=== PATIENT | male | born 1960 | race Caucasian/White ===

== ENCOUNTER → 2018-08-07 10:26 | Outpatient (CLI) | payer OTHER, SELFPAY ==
--- NOTE | 2018-08-07 10:32 | XR_ITS ---
XR chest 2V HISTORY: ITS.REASON: COUGH,SOB,LT SHOULDER PAIN ORDERING PHYSICIAN: Oc Antonio PATIENT AGE: 58 years COMPARISON: None FINDINGS: The cardiomediastinal silhouette and pulmonary vascularity are within normal limits. There is chronic coarsening of the bronchovascular markings consistent with chronic peribronchial inflammatory change. There is patchy density in the left perihilar region suggesting an area of infiltrate. Old granulomatous disease noted. No acute bony anomalies. IMPRESSION: Chronic peribronchial inflammatory change with left perihilar infiltrate. Recommend follow until clear.
== END ==
PROVIDERS: PCP Internal Medicine; Visit Provider Internal Medicine
DX: R05 Cough (principal); R06.02 Shortness of breath; M25.512 Pain in left shoulder
CPT/HCPCS: 71046

== ENCOUNTER → 2018-09-10 09:33 | Outpatient (CLI) | payer OTHER, SELFPAY ==
--- NOTE | 2018-09-10 09:37 | FL_ITS ---
FL upper GI w air HISTORY: ITS.REASON: LUQ PAIN,HEARTBURN ORDERING PHYSICIAN: Oc Antonio PATIENT AGE: 58 years Comparison: None FINDINGS: The esophagus, stomach, and duodenum have an unremarkable appearance. There is a small sliding hiatal hernia. There was mild reflux during the exam No ulcer or mass evident. No mucosal abnormalities apparent. There is normal peristalsis. The duodenal C-loop is nondisplaced. FLUOROSCOPY TIME : 56 seconds. IMPRESSION: 1. Small sliding hiatal hernia with mild GE reflux. 2. Otherwise negative upper GI
== END ==
PROVIDERS: PCP Internal Medicine; Visit Provider Internal Medicine
DX: R10.12 Left upper quadrant pain (principal); R12 Heartburn
CPT/HCPCS: 74247

== ENCOUNTER 2018-10-07 13:58 | Outpatient (CLI) | payer SELFPAY | END 2018-10-07 16:16 | disposition home or self-care (01) | PROVIDERS: Visit Provider Nurse Practitioner Family | DX: Z02.4 Encounter for examination for driving license (principal) ==

== ENCOUNTER → 2018-10-10 10:13 | Outpatient (CLI) | payer OTHER, SELFPAY ==
--- NOTE | 2018-10-10 10:21 | XR_ITS ---
XR chest 2V HISTORY: Follow-up pneumonia ITS.REASON: S/P PNUEMONIA L-F/U ORDERING PHYSICIAN: Oc Antonio PATIENT AGE: 58 years COMPARISON: 08/07/2018 FINDINGS: The cardiomediastinal silhouette and pulmonary vascularity are within normal limits. Previously noted patchy infiltrate in the left perihilar region has improved. There remains some minimal atelectatic change in the perihilar area. The remaining lungs are clear. There is some mild biapical fibrotic change. IMPRESSION: Improvement in left midlung pneumonia.
== END ==
PROVIDERS: PCP Internal Medicine; Visit Provider Internal Medicine
DX: Z09 Encounter for follow-up examination after completed treatment for conditions other than malignant neoplasm (principal); J18.9 Pneumonia, unspecified organism
CPT/HCPCS: 71046

== ENCOUNTER → 2019-07-07 14:39 | Outpatient (CLI) | payer OTHER, SELFPAY ==
--- NOTE | 2019-07-07 14:43 | XR_ITS ---
PROCEDURE: XR CERVICAL SPINE 5V CLINICAL INDICATION: CERVICAL SPASMS COMPARISON: No exams were available for comparison FINDINGS: Normal alignment. There is mild degenerative disc disease from C3 to C7. This is most prominent at C5-C6. Facet and uncovertebral arthropathy results in foraminal narrowing is present on the right at C3-C4 C4-C5 and C5-C6 and on the left at C4-C5 and C5-C6. No fracture or dislocation. No lytic or blastic change. There is mild biapical pleural thickening. IMPRESSION: Degenerative changes as described above with bilateral foraminal narrowing Dictated by: Gregorio Lomas MD 07/07/2019 15:25 Electronically signed by Gregorio Lomas MD in [place] 07/07/2019 15:25
--- NOTE | 2019-07-07 14:43 | XR_ITS ---
PROCEDURE: XR CHEST 2V CLINICAL HISTORY: PLEURISY Shortness of air, smoker COMPARISON: CXR1 CHEST-PORTABLE from 01/08/2014 CXR2V XR chest 2V from 07/29/2018 CXR2V XR chest 2V from 08/07/2018 CXR2V XR chest 2V from 10/10/2018 FINDINGS: The cardiomediastinal silhouette and pulmonary vascularity are within normal limits. There is mild biapical pleural thickening. Lungs are clear otherwise. No acute bony abnormalities. IMPRESSION: Chronic changes, no acute finding Dictated by: Gregorio Lomas MD 07/07/2019 15:36 Electronically signed by Gregorio Lomas MD in [place] 07/07/2019 15:36
== END ==
PROVIDERS: PCP Internal Medicine; Visit Provider Internal Medicine
DX: M54.2 Cervicalgia (principal); M62.838 Other muscle spasm; R09.1 Pleurisy
CPT/HCPCS: 71046; 72050

== ENCOUNTER → 2019-08-27 14:32 | Outpatient (CLI) | payer OTHER, SELFPAY ==
--- NOTE | 2019-08-27 14:38 | XR_ITS ---
PROCEDURE: XR KNEE LT 3V CLINICAL INDICATION: INJURY AT WORK 08-26-19, PAIN Posttraumatic pain COMPARISON: No exams were available for comparison FINDINGS: No fracture or dislocation. No lytic or blastic change. There is normal mineralization. The joint spaces are well-preserved. No significant degenerative/arthritic changes. No erosive changes evident. Other findings:None. IMPRESSION: No acute findings. Dictated by: Gregorio Lomas MD 08/27/2019 15:38 Electronically signed by Gregorio Lomas MD in [place] 08/27/2019 15:38
== END ==
PROVIDERS: PCP Internal Medicine; Visit Provider Internal Medicine
DX: M25.562 Pain in left knee (principal)
CPT/HCPCS: 73562

== ENCOUNTER → 2019-09-03 11:14 | Outpatient (CLI) | payer OTHER, SELFPAY ==
--- NOTE | 2019-09-03 11:19 | XR_ITS ---
PROCEDURE: XR ANKLE LT MIN 3V CLINICAL INDICATION: LT ANKLE PAIN,S/P ACCIDENT AT WORK 08/26/19 Left ankle pain COMPARISON: No exams were available for comparison FINDINGS: IMPRESSION: No acute findings. Dictated by: Gregorio Lomas MD 09/03/2019 11:51 Electronically signed by Gregorio Lomas MD in [place] 09/03/2019 11:53
== END ==
PROVIDERS: PCP Internal Medicine; Visit Provider Internal Medicine
DX: M25.572 Pain in left ankle and joints of left foot (principal); Y99.0 Civilian activity done for income or pay
CPT/HCPCS: 73610

== ENCOUNTER 2019-12-09 08:00 | Outpatient (RCR) | payer OTHER, SELFPAY | END 2019-12-09 08:05 | disposition home or self-care (01) | LOC: PT 08:00 | PROVIDERS: Visit Provider Internal Medicine | DX: M25.562 Pain in left knee (principal); M25.572 Pain in left ankle and joints of left foot; S89.92XA Unspecified injury of left lower leg, initial encounter | CPT/HCPCS: 97010; 97014; 97035; 97110; 97140; 97163; 97164; G0283 ==

== ENCOUNTER → 2021-08-16 09:33 | Outpatient (CLI) | payer OTHER, SELFPAY ==
[2021-08-16 09:54] LABS: Basophils # 0.1 K/mm3 (0-0.2); Basophils % 2.1 % (0.1-2.0); Eosinophils # 0.3 K/mm3 (0.0-0.4); Hematocrit 52.5 % (42.0-52.0); Lymphocytes # 1.9 K/mm3 (0.7-4.5); Lymphocytes % 28.5 % (10-50); Mean Corpuscular HGB Conc 32.3 g/dL (31.8-35.4); Mean Corpuscular Hemoglobin 30.1 pg (27.0-31.2); Mean Corpuscular Volume 92.9 fl (80-94); Mean Platelet Volume 8.1 fl (7.4-10.4); Monocytes # 0.7 K/mm3 (0.1-1.0); Monocytes % 11.2 % (1.7-9.3); Neutrophils # 3.6 K/mm3 (1.8-7.8); Neutrophils % 54.2 % (37.0-80.0); Platelet Count 266 K/mm3 (142-424); Red Blood Count 5.65 M/mm3 (4.60-6.20); Red Cell Distribution Width 13.7 % (11.5-17.5); White Blood Count 6.6 K/mm3 (4.8-10.8)
--- NOTE | 2021-08-16 10:12 | ECG_ITS ---
APPROVED REPORT Exam: Resting ECG HR:59 bpm ECG Measurements Heart Rate 59 AXES NH 168 P 60 QRSd 88 QRS 87 QT 400 T 55 QTc 396 Conclusion Sinus bradycardia Otherwise normal ECG Electronically signed by : Shakeel Dupree MD 08/19/2021 14:32:19
[2021-08-16 10:53] LABS: Anion Gap 11.5 mEq/L (5-15); Blood Urea Nitrogen 11 mg/dl (9-20); Calcium 9.1 mg/dl (8.4-10.2); Carbon Dioxide 28 mmol/L (22.0-30.0); Chloride 109 mmol/L (98-107); Estimated Glomerular Filt Rate 99 ml/min (>60); GFR (African American) 119 ML/MIN (>60); Glucose 91 mg/dl (74-100); Potassium 4.5 mmoL/L (3.5-5.1); Sodium 144 mmol/L (136-145)
== END ==
PROVIDERS: Visit Provider Otolaryngology
DX: Z01.818 Encounter for other preprocedural examination (principal); Z11.52 Encounter for screening for COVID-19; J34.89 Other specified disorders of nose and nasal sinuses
CPT/HCPCS: 36415; 80048; 85025; 93005; C9803; U0003; U0005

== ENCOUNTER 2021-08-18 07:00 | Day surgery (SDC) | payer OTHER, SELFPAY ==
[2021-08-15 11:32] VITALS: BMI 29.0
[2021-08-18 07:53] VITALS: BP 129/79; PULSE 65; RESP 20; TEMP 37.1; O2SAT 96
--- NOTE | 2021-08-18 08:33 | HMH.ANESCL ---
[facility] Anesthesia Checklist - Patient Identification Patient Identification: Arm Band - Structural Data Admitted From: Home Planned Operative Procedure/s: excision left nasal lesion Consent for Planned Operative Procedure(s) Verified: Yes Verified Documents: Surgical Consent, History and Physical - NPO Status Verified Time NPO: 00:00 - Additional verifications Anesthesia Reactions: No Hx Blood Transfusions: No Blood Transfusion Reaction: No - Airway Assessment C-Spine Mobility Assessed: Yes (mp2) TMJ Mobility Assessed: Yes - Neurological Assessment Level of Consciousness: Awake, Alert - Anesthesia Plan Anesthesia Risk discussed: Yes Anesthesia Plan: Verified ASA Class: II Anesthesia Type: MAC [facility] History I have reviewed the patient's past medical history: Yes Medical History: Reports:: Gastroesophageal Reflux Disease(GERD) Denies:: Cancer, Diabetes Mellitus Type 1, Diabetes Mellitus Type 2, MRSA, Seizures *Have you ever received a pneumonia vaccine?: No *Have you received a flu vaccine this season?: No Other Medical History: Denies: Blood Transfusion Reaction Anesthesia experience/problems:: nac Other Surgeries: Yes: Skin Cancer Excision, Other Amputation: No Fractures: No - *Social History Last grade of school completed: High school graduate Smoking Status: Former smoker Tobacco Type: e-cigarettes # Packs/Day (cigarettes): 0 Alcohol Intake: never Substance Use Type: denies use *Occupational Status:: employed Housing: house Household Members: spouse *Travel in the last 8 weeks: None Family Hx:: Cancer
[2021-08-18 08:50] VITALS: BP 116/71; PULSE 65; RESP 16; TEMP 36.4; O2SAT 93
[2021-08-18 09:05] VITALS: BP 105/66; PULSE 71; RESP 16; TEMP 36.4; O2SAT 92
[2021-08-18 09:20] VITALS: BP 108/70; PULSE 77; RESP 16; TEMP 36.4; O2SAT 94
--- NOTE | 2021-08-18 09:31 | HMH.OPNOTE ---
Date of procedure: 08/18/21 Pre-op Diagnosis:: 1. Depressed scar left nasal tip 2. Possible recurrence of basal cell carcinoma left nasal tip Post-op Diagnosis:: 1. Depressed scar left nasal tip 2. Nonrecurrent basal cell carcinoma left nasal tip Procedure performed:: 1. Excision of depressed scar left nasal tip 2.4 cm with Z-plasty repair Surgeon:: Daryn Lopez MD NURSE ASSISTANT:: Carlyle Rico Anesthesia: MAC Estimated blood loss (mL): 5 Operative findings:: same Operative note:: The eyes were protected with Steri-Strips, the face was prepped with aqueous chlorhexidine. The perilesional area was infiltrated with 3 cc of 2% lidocaine, the lesion on the left side of the nasal tip was marked out and the length of the lesion was 2.4 cm the josé miguel out was incised and the lesion was excised well to the level of the cartilages, the specimen was submitted for frozen section analysis and there was no evidence of any recurrent basal cell skin cancer which was a possibility given the original report that suggested that one of the margins was positive. Bleeding was stopped with bipolar cautery superior and inferior incisions were made and a tissue rearrangement Z-plasty repair was done with interrupted 2-0 nylon sutures. Dermabond was applied and also Surgicel snow was placed in the defect blood loss for all the procedure was 5 cc and stopped completely. Once the repair was completed, Dermabond was applied as was dot dressings and the patient was sent to recovery in good general condition. Condition: stable Disposition: PACU Complications:: none
== END 2021-08-18 09:25 | disposition home or self-care (01) ==
LOC: OR 07:02
PROVIDERS: PCP Internal Medicine; Visit Provider Otolaryngology
PROC: (CPT 14060; principal; 2021-08-18 08:15)
DX: L98.8 Other specified disorders of the skin and subcutaneous tissue (principal); J34.89 Other specified disorders of nose and nasal sinuses; Z85.820 Personal history of malignant melanoma of skin; K21.9 Gastro-esophageal reflux disease without esophagitis; Z80.9 Family history of malignant neoplasm, unspecified; Z79.899 Other long term (current) drug therapy
CPT/HCPCS: 14060; 96374; 96375

== ENCOUNTER → 2022-08-01 16:27 | Outpatient (CLI) | payer BC, SELFPAY ==
[2022-08-01 18:52] LABS: Basophils # 0.7 K/mm3 (0-0.2); Basophils % 9.2 % (0.1-2.0); Eosinophils # 0.2 K/mm3 (0.0-0.4); Hemoglobin 16.2 g/dL (14.1-18.0); Lymphocytes # 3.1 K/mm3 (0.7-4.5); Lymphocytes % 41.9 % (10-50); Mean Corpuscular HGB Conc 26.5 g/dL (31.8-35.4); Mean Corpuscular Volume 109.6 fl (80-94); Mean Platelet Volume 24.9 fl (7.4-10.4); Monocytes # 0.8 K/mm3 (0.1-1.0); Monocytes % 10.3 % (1.7-9.3); Neutrophils # 3.3 K/mm3 (1.8-7.8); Neutrophils % 44.8 % (37.0-80.0); Platelet Count 197 K/mm3 (142-424); Red Cell Distribution Width 20.1 % (11.5-17.5); White Blood Count 7.4 K/mm3 (4.8-10.8)
[2022-08-01 18:55] LABS: Alanine Aminotransferase 23 U/L (12-78); Albumin/Globulin Ratio 1.7 (1.1-1.8); Alkaline Phosphatase 106 U/L (38-126); Anion Gap 15.6 mEq/L (5-15); Aspartate Amino Transferase 31 U/L (17-59); Bilirubin,Total 0.6 mg/dl (0.2-1.3); Blood Urea Nitrogen 15 mg/dl (9-20); Calcium 8.6 mg/dl (8.4-10.2); Carbon Dioxide 25 mmol/L (22.0-30.0); Chloride 106 mmol/L (98-107); Chol/HDL Ratio 6.5 (1-3.5); Cholesterol 215 mg/dl (140-200); Estimated Glomerular Filt Rate 98 ml/min (>60); GFR (African American) 119 ML/MIN (>60); Globulin 2.4 g/dL (1.3-3.2); Glucose 86 mg/dl (74-100); HDL Cholesterol 33 mg/dl (40-60); Potassium 4.6 mmoL/L (3.5-5.1); Sodium 142 mmol/L (136-145); Total Protein,Serum 6.4 g/dl (6.3-8.2); Triglycerides 145 mg/dl (30-150); VLDL Cholesterol 29 mg/dL (0-40)
[2022-08-01 19:05] LABS: Direct LDL Cholesterol 151.04 mg/dL (100-129)
[2022-08-01 19:27] LABS: Prostate Specific Ag Screen 2.1 ng/ml (0.0-4.0); Thyroid Stimulating Hormone 4.77 uIU/mL (0.465-4.68)
[2022-08-01 19:43] LABS: Hematocrit 61.3 % (42.0-52.0)
== END ==
PROVIDERS: PCP Internal Medicine; Visit Provider Internal Medicine
DX: E78.5 Hyperlipidemia, unspecified (principal); R19.5 Other fecal abnormalities; K21.9 Gastro-esophageal reflux disease without esophagitis; N40.1 Benign prostatic hyperplasia with lower urinary tract symptoms; Z12.5 Encounter for screening for malignant neoplasm of prostate; Z83.49 Family history of other endocrine, nutritional and metabolic diseases
CPT/HCPCS: 80053; 80061; 84443; 85025; G0103

== ENCOUNTER 2022-08-21 08:47 | Outpatient (CLI) | payer BC, SELFPAY ==
--- NOTE | 2022-08-21 08:54 | US_ITS ---
FINAL REPORT CLINICAL HISTORY: HEMATURIA,HEME POSITIVE STOOL, FINDINGS: Sonographic images of the abdomen were obtained. The liver has increased echogenicity consistent with fatty infiltration. The gallbladder has an unremarkable appearance without evidence of gallstones. There is no evidence of biliary ductal dilatation. The common hepatic duct measures 2 mm, which is within normal limits. The pancreas is partially obscured. The spleen size is normal. The right kidney measures 10.9 cm in length. The left kidney measures 12.4 cm in length. There is mild cortical thinning bilaterally. There is no evidence of hydronephrosis. The aorta has an unremarkable appearance. Limited images of the inferior vena cava are unremarkable. IMPRESSION: Fatty liver. Mild renal cortical thinning bilaterally. Reviewed, Interpreted and Dictated by Tam Hanks III, MD Transcribed by Ann Barfield Authenticated and [facility]
[2022-08-21 10:02] VITALS: BMI 29.0
[2022-08-21 10:10] VITALS: BP 132/80; PULSE 68; RESP 18; TEMP 36.4; O2SAT 98
[2022-08-21 10:33] LABS: Hematocrit 49.4 % (42.0-52.0); Hemoglobin 16.7 g/dL (14.1-18.0)
[2022-08-21 11:25] VITALS: BP 104/60; PULSE 78; RESP 18; O2SAT 98
== END 2022-08-21 11:25 | disposition home or self-care (01) ==
LOC: RAD 08:47 → INF 09:59
PROVIDERS: PCP Internal Medicine; Visit Provider Internal Medicine
DX: R71.8 Other abnormality of red blood cells (principal); D75.9 Disease of blood and blood-forming organs, unspecified; R19.5 Other fecal abnormalities
CPT/HCPCS: 36415; 76700; 85014; 85018; 99195

== ENCOUNTER 2022-08-23 10:37 | Day surgery (SDC) | payer BC, SELFPAY ==
[2022-08-07 14:22] VITALS: BMI 29.0
[2022-08-23] VITALS (7 sets, daily range): BP systolic 87–123; BP diastolic 44–84; PULSE 53–66; RESP 16–18; TEMP 36.1–36.4; O2SAT 93–98
--- NOTE | 2022-08-23 12:26 | P.PN_ITS ---
[facility] Medical History Family history of uterine cancer Family history- stomach cancer Family hx of colon cancer GERD (gastroesophageal reflux disease) History of diverticulitis History of gastroesophageal reflux (GERD) History of sinus problem Hx of skin cancer, basal cell Surgical History History of colonoscopy Family History Other Family history of cancer Social History Smoking Status: Current some day smoker tobacco type: e-cigarettes second hand exposure: Yes alcohol intake: never substance use type: denies use current occupational status: employed Travel in the last 8 weeks: None household members: spouse housing: house lives independently: Yes marital status: 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, 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 special tim needs: No agree to transfusion: No do you feel safe at home: Yes victim of physical abuse: No victim of emotional abuse: No victim of sexual abuse: No would you like helpful sources: No [facility] Anesthesia Checklist Patient Identification Patient Identification: Arm Band Structural Data Admitted From: Home Planned Operative Procedure/s: colonoscopy Consent for Planned Operative Procedure(s) Verified: Yes Verified Documents: Surgical Consent and History and Physical NPO Status Verified Time NPO: 00:00 Additional verifications Anesthesia Reactions: No Hx Blood Transfusions: No Blood Transfusion Reaction: No Airway Assessment C-Spine Mobility Assessed: Yes TMJ Mobility Assessed: Yes Dentition: Poor Dentition Neurological Assessment Level of Consciousness: Awake and Alert Anesthesia Plan Anesthesia Risk discussed: Yes Anesthesia Plan: Verified ASA Class: II Anesthesia Type: MAC
--- NOTE | 2022-08-23 14:19 | HMH.SCOPE ---
Procedure: Date: 08/23/22 Patient Date of :: 1960 Procedure Performed:: Colonoscopy Indications:: The patient is a 62 year old who presents for high risk screening colonoscopy. There is a family history of colon cancer in sister Performing Provider:: Rik Davenport MD Referring Provider:: Oc Antonio Sedation:: See RN records Procedure:: After placing the patient in the left lateral decubitus position, the colonoscopy was gently inserted into the rectum and under direct visualization advanced to the cecum which was identified by transillumination in the right lower quadrant, identification of the ileocecal valve, appendiceal orifice, and cecal strap. Color, texture, mucosa, and anatomy of the colon were carefully examined with the scope. Findings:: Anal canal: normal Rectum: Internal hemorrhoids Sigmoid colon: Very large pendunculated polyp approximately 5 cm in size at 35 cm. The polyp was piecemeal removed completely with hot snare polypectomy. An endoclip was placed across the stalk after polypectomy. Endoscopic marker was placed distal to the polypectomy site. Diverticulosis. Three sessile polyps ranging between 5-8 mm in size. Removed with hot snare polypectomy Descending colon: Polyp 7 mm in size. Removed with hot snare polypectomy. Diverticulsosis Splenic flexure: normal Transverse colon: normal without polyps or inflammatory changes Hepatic flexure: normal Ascending colon: sessile polyp 5 mm in size. Removed with cold snare polypectomy Cecum: 3 mm polyp on ICV. Removed with cold forceps Terminal ileum: not visualized Impression: Large pedunculated polyp at 35 cm Polyps of sigmoid colon Polyp of descending colon (not retrieved) Polyp of ascending colon Polyp of ICV Diverticulosis Recommendations:: Await pathology results Flexible sigmoidoscopy in 2-3 months Complications:: None Estimated blood obtained (mL): 2
== END 2022-08-23 15:25 | disposition home or self-care (01) ==
PROVIDERS: PCP Internal Medicine; Visit Provider Internal Medicine
PROC: 0DJD8ZZ Inspection of Lower Intestinal Tract, Via Natural or Artificial Opening Endoscopic (ICD-10-PCS; CPT 45378; principal; 2022-08-23 12:00)
DX: Z12.11 Encounter for screening for malignant neoplasm of colon (principal); K63.5 Polyp of colon; Z86.010 Personal history of colon polyps; Z79.899 Other long term (current) drug therapy; Z72.0 Tobacco use
CPT/HCPCS: 45380; 45385; 88305; J2704

== ENCOUNTER 2022-08-30 08:24 | Outpatient (CLI) | payer BC, SELFPAY ==
[2022-08-30 08:28] VITALS: BMI 29.0
--- NOTE | 2022-08-30 08:35 | PC.NURSE ---
0835-collected labs via peripheral stick; if hct >45 pt to receive therapeutic phlebotomy
[2022-08-30 08:46] LABS: Hematocrit 45.7 % (42.0-52.0)
[2022-08-30 09:05] VITALS: BP 131/81; PULSE 59; RESP 18; O2SAT 96
[2022-08-30 09:28] VITALS: BP 117/78; PULSE 59; RESP 18
== END 2022-08-30 09:28 | disposition home or self-care (01) ==
LOC: INF 08:25
PROVIDERS: PCP Internal Medicine; Visit Provider Internal Medicine
DX: R71.8 Other abnormality of red blood cells (principal); R19.5 Other fecal abnormalities; D75.9 Disease of blood and blood-forming organs, unspecified
CPT/HCPCS: 36415; 85014; 85018; 99195

== ENCOUNTER 2022-09-06 08:39 | Outpatient (CLI) | payer BC, SELFPAY ==
[2022-09-06 08:43] VITALS: BMI 29.0
--- NOTE | 2022-09-06 08:55 | PC.NURSE ---
0848-pt here today for lab check and possible phlebotomy if needed. venipuncture performed using butterfly needle to pts lt ac, blood drawn for labs as ordered. site secured once needle was withdrawn using 2x2 gauze and coban. will await lab results to determine poc.
[2022-09-06 08:56] LABS: Hematocrit 46.1 % (42.0-52.0); Hemoglobin 15.3 g/dL (14.1-18.0)
[2022-09-06 09:18] VITALS: BP 107/73; PULSE 59; RESP 18; TEMP 36.4; O2SAT 98
[2022-09-06 09:30] VITALS: BP 98/64; PULSE 57; RESP 18; O2SAT 98
== END 2022-09-06 09:30 | disposition home or self-care (01) ==
LOC: INF 08:40
PROVIDERS: PCP Internal Medicine; Visit Provider Internal Medicine
DX: R71.8 Other abnormality of red blood cells (principal); R19.5 Other fecal abnormalities; D75.9 Disease of blood and blood-forming organs, unspecified
CPT/HCPCS: 36415; 85014; 85018; 99195

== ENCOUNTER 2022-11-29 07:55 | Day surgery (SDC) | payer BC, SELFPAY ==
[2022-11-29] VITALS (7 sets, daily range): BP systolic 81–119; BP diastolic 51–75; PULSE 55–68; RESP 14–17; TEMP 36.4; O2SAT 90–97; BMI 29.0
--- NOTE | 2022-11-29 08:27 | P.PN_ITS ---
[facility] Disclaimer: The information contained in this section may have been updated after the patient was seen, as this information can be updated by other users. Medical History Family history of uterine cancer Family history- stomach cancer Family hx of colon cancer GERD (gastroesophageal reflux disease) History of diverticulitis History of gastroesophageal reflux (GERD) History of sinus problem Hx of skin cancer, basal cell Surgical History History of colonoscopy Family History Other Family history of cancer Social History Smoking Status: Current some day smoker tobacco type: e-cigarettes second hand exposure: Yes alcohol intake: never substance use type: denies use current occupational status: employed Travel in the last 8 weeks: None household members: spouse housing: house lives independently: Yes marital status: 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, 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: Yes special tim needs: No agree to transfusion: No do you feel safe at home: Yes victim of physical abuse: No victim of emotional abuse: No victim of sexual abuse: No would you like helpful sources: No [facility] Anesthesia Checklist Patient Identification Patient Identification: Arm Band and Verbal (Name & ) Structural Data Admitted From: Home Planned Operative Procedure/s: Sigmoidoscopy Consent for Planned Operative Procedure(s) Verified: Yes NPO Status Verified Time NPO: 00:00 Additional verifications Anesthesia Reactions: No Hx Blood Transfusions: No Blood Transfusion Reaction: No Airway Assessment C-Spine Mobility Assessed: Yes TMJ Mobility Assessed: Yes Dentition: Poor Dentition Neurological Assessment Level of Consciousness: Awake Hx Seizures: No Numbness or tingling in extremities: No Anesthesia Plan Anesthesia Risk discussed: Yes Anesthesia Plan: Verified ASA Class: I Anesthesia Type: MAC
--- NOTE | 2022-11-29 09:10 | HMH.SCOPE ---
Procedure: Date: 11/29/22 Patient Date of :: 1960 Procedure Performed:: Flexible sigmoidoscopy Indications:: The patient is a 62 year old who presented for first time screening colonoscopy in August. 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 There is a family history of colon cancer in a first degree relative (sister) Performing Provider:: Rik Davenport MD Referring Provider:: Shakeel Dupree MD Sedation:: See RN records Procedure:: After placing the patient in the left lateral decubitus position, the colonoscopy was gently inserted into the rectum and under direct visualization advanced to the descending colon (60 cm). Color, texture, mucosa, and anatomy of the colon were carefully examined with the scope. Findings:: Anal canal: normal Rectum: Internal hemorrhoids Sigmoid colon: Endoscopic marker identified. Proximal to the endoscopic marker, there was a polyp less than 10 mm in size. This was removed completely with hot snare polpectomy. Diverticulosis. Descending colon: normal without polyps or inflammatory changes Impression: Polyp of sigmoid colon Diverticulosis Recommendations:: Await pathology results Colonoscopy in 2 years Complications:: None Estimated blood obtained (mL): 0
== END 2022-11-29 09:51 | disposition home or self-care (01) ==
PROVIDERS: PCP Internal Medicine; Visit Provider Internal Medicine
PROC: 0DJD8ZZ Inspection of Lower Intestinal Tract, Via Natural or Artificial Opening Endoscopic (ICD-10-PCS; CPT 45330; principal; 2022-11-29 09:00)
DX: D12.5 Benign neoplasm of sigmoid colon (principal); K64.8 Other hemorrhoids; Z86.010 Personal history of colon polyps; Z80.0 Family history of malignant neoplasm of digestive organs; Z72.0 Tobacco use
CPT/HCPCS: 45338; 88305; J2704

== ENCOUNTER 2023-10-18 11:08 | Observation (INO) | payer BC, SELFPAY ==
[2023-10-18] VITALS (13 sets, daily range): BP systolic 100–130; BP diastolic 54–86; PULSE 53–87; RESP 16–18; TEMP 36.7–36.8; O2SAT 94–98; BMI 30.3; BMI 27.9
--- NOTE | 2023-10-18 12:01 | CT_ITS ---
FINAL REPORT TECHNIQUE: After the administration of intravenous contrast, axial images were obtained through the abdomen and pelvis by computed tomography. The study was performed with techniques to keep radiation dose as low as reasonably achievable, (ALARA). Individual dose reduction techniques using automated exposure control or adjustment of mA and/or kV according to the patient's size were employed. CLINICAL HISTORY: rectal pain, pain into L glute today FINDINGS: Abdomen: The lung bases are clear. The liver parenchyma is homogeneous. The gallbladder is present. The spleen, pancreas, adrenals and kidneys appear unremarkable. The aorta is normal in caliber. There is no free fluid or adenopathy. Pelvis: The appendix is normal. There are scattered diverticula throughout the sigmoid colon. The urinary bladder is unremarkable. There is no free fluid or adenopathy. There is a small fluid collection or phlegmon in the posterior perianal region measuring 2.7 x 1.9 cm. Finding is best seen on images 125-128 of series 3. IMPRESSION: Phlegmon versus developing abscess in the posterior perirenal region. Reviewed, Interpreted and Dictated by Shantanu Rubalcava MD Transcribed by Pippa Zabala Authenticated and [facility]
--- NOTE | 2023-10-18 12:04 | ED_ITS ---
Discharge Plan Disposition Patient Disposition: Admitted Clinical Impressions Clinical Impression: Perianal abscess Discharge ED Provider: Debbi Anguiano Adult HPI General Chief complaint: PAIN Stated complaint: throbbing pain Time Seen by Provider: 10/18/23 11:52 Mode of Arrival: Ambulatory Source of Information: Patient Limitations: No Limitations Description of Symptoms (Recalled from ER Triage Doc. by RN): pt presents to ED with c/o rectal pain ongoing for 1 week. pt reports that approx one week ago he had normal bowel movement but when he wiped he felt burning and pain at his rectum. pt reports no blood in stool or toilet paper. pt tries tucks pad and rectal suppository at home with no relief. History of Present Illness HPI narrative: This 63-year-old male with no known chronic medical conditions presents to the ER with concerns of rectal pain for 1 week. Patient states he has been having fairly regular bowel movements. 1 week ago he had normal bowel movement and wiped and had a burning pain. He reports no blood in his stool or on the toilet paper. He states he has tried Preparation H and rectal suppository at home with no relief of the pain. He says in the last 3 days the pain has been progressive and worsening. He now also has pain within the left cheek that is worse when he coughs. Patient denies any dysuria or fevers. He denies any dark melanotic stools. He denies any other associated symptoms. Related Data Home Medications Medication Instructions Recorded Confirmed omeprazole 40 mg capsule,delayed 40 mg PO DAILY Acid Reflux 08/11/21 10/18/23 release Allergies Allergy/AdvReac Type Severity Reaction Status Date / Time No Known Allergies Allergy Verified 10/18/23 15:34 [facility] Disclaimer: The information contained in this section may have been updated after the patient was seen, as this information can be updated by other users. Medical History Family history of uterine cancer Family history- stomach cancer Family hx of colon cancer GERD (gastroesophageal reflux disease) History of diverticulitis History of gastroesophageal reflux (GERD) History of sinus problem Hx of skin cancer, basal cell Surgical History History of colonoscopy Family History Other Family history of cancer Social History Smoking Status: Current every day smoker tobacco type: e-cigarettes second hand exposure: Yes alcohol intake: never substance use type: denies use current occupational status: employed Travel in the last 8 weeks: None household members: spouse housing: house lives independently: Yes marital status: 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, 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: Yes special tim needs: No agree to transfusion: No do you feel safe at home: Yes victim of physical abuse: No victim of emotional abuse: No victim of sexual abuse: No would you like helpful sources: No ROS Obtained: Yes All systems reviewed & no additional complaints except as documented Constitutional Constitutional: Denies chills, Denies fever(s), Denies headache(s) and Denies weakness Eyes Eyes: Denies change in vision ENT Ears, Nose, Mouth, and Throat: Denies dizziness, Denies headache(s), Denies nasal congestion and Denies sore throat Cardiovascular Cardiovascular: Denies chest pain, Denies dyspnea and Denies leg edema Respiratory Respiratory: Denies cough and Denies dyspnea Gastrointestinal Gastrointestingal: Denies constipation, diarrhea, nausea or vomiting Comments: Patient has rectal pain Genitourinary Male Genitourinary: Denies difficulty urinating Musculoskeletal Musculoskeletal: Denies arthralgias, Denies myalgias, Denies numbness and Denies tingling Comments: Pain radiating into the left glute from the rectum when coughing Integumentary/Breasts Skin/Breast: Denies change in pigmentation Neurologic Neurologic: Denies dizziness, Denies headache(s), Denies numbness, Denies tingling and Denies weakness Physical Exam General General appearance: alert and in no apparent distress Head Head exam: atraumatic and normocephalic Eye Eye exam: Present PERRL and EOMI ENT ENT exam: Present mucous membranes moist Neck Neck exam: Present normal inspection and full ROM Chest Chest inspection: Present symmetric chest wall rise Respiratory Respiratory exam: Absent respiratory distress or stridor Cardiovascular Cardiovascular exam: Present regular rate and normal rhythm Abdominal Exam Abdominal exam: Present soft; Absent distention or tenderness Rectal Exam Rectal exam: Present normal rectal tone, hemorrhoids and tenderness comment: Few palpable internal hemorrhoids, no large external hemorrhoids, no findings of thrombosis. Patient has rectal pain with digital rectal exam, no blood on the glove, normal colored stool, no fissures exam: Absent testicular tenderness Extremities Exam Extremities exam: Present full ROM Neurological Exam Neurological exam: Present alert and oriented X3; Absent motor sensory deficit Psychiatric Psychiatric exam: Present normal affect and normal mood Skin Skin exam: Present warm and dry Medical Decision Making [place] Inquiry Pt receiving controlled substance: No Vital Signs: 10/18/23 11:09 10/18/23 11:15 10/18/23 12:24 Temperature 98.2 F Temperature Source Oral Pulse Rate 61 62 Pulse Rate [Left Radial] 61 Respiratory Rate 16 Blood Pressure 116/70 130/86 Blood Pressure [Right Arm] 116/70 Blood Pressure Mean 85 93 Blood Pressure Mean [Right Arm] 85 02 Sat by Pulse Oximetry 98 96 96 Oxygen Delivery Method Room Air Room Air 10/18/23 12:30 10/18/23 13:00 10/18/23 13:30 Temperature Temperature Source Pulse Rate 56 L 61 60 Pulse Rate [Left Radial] Respiratory Rate Blood Pressure 114/81 116/71 122/78 Blood Pressure [Right Arm] Blood Pressure Mean 87 97 91 Blood Pressure Mean [Right Arm] 02 Sat by Pulse Oximetry 96 98 97 Oxygen Delivery Method Room Air Room Air 10/18/23 14:00 10/18/23 15:22 10/18/23 14:30 Temperature 98.0 F Temperature Source Pulse Rate 60 53 L 57 L Pulse Rate [Left Radial] Respiratory Rate 17 Blood Pressure 122/79 105/58 L 111/80 Blood Pressure [Right Arm] Blood Pressure Mean 88 91 Blood Pressure Mean [Right Arm] 02 Sat by Pulse Oximetry 98 97 Oxygen Delivery Method Room Air Room Air Room Air 10/18/23 15:00 Temperature Temperature Source Pulse Rate 53 L Pulse Rate [Left Radial] Respiratory Rate Blood Pressure 105/58 L Blood Pressure [Right Arm] Blood Pressure Mean 83 Blood Pressure Mean [Right Arm] 02 Sat by Pulse Oximetry 96 Oxygen Delivery Method Room Air Lab Data Lab Results 10/18/23 12:10: WBC 9.9, RBC 5.25, Hgb 16.0, Hct 46.1, MCV 87.9, MCH 30.6, MCHC 34.8, RDW 13.6, Plt Count 269, MPV 7.8, Neut % (Auto) 73.2, Lymph % (Auto) 15.5, [place] % (Auto) 9.0, Eos % (Auto) 1.7, Baso % (Auto) 0.6, Neut # (Auto) 7.2, Lymph # (Auto) 1.5, [place] # (Auto) 0.9, Eos # (Auto) 0.2, Baso # (Auto) 0.1, Sodium 140, Potassium 4.1, Chloride 107, Carbon Dioxide 25, Anion Gap 12.1, BUN 21 H, Creatinine 0.80, Estimated Creat Clear 113, Estimated GFR 98, Est GFR ( Amer) 119, Glucose 92, Lactate 1.1, Calcium 8.6, Total Bilirubin 0.6, AST 30, ALT 26, Alkaline Phosphatase 100, Total Protein 6.7, Albumin 3.6, Globulin 3.1, Albumin/Globulin Ratio 1.2 10/18/23 12:25: Urine Color Yellow, Urine Appearance Clear, Urine pH 5.5, Ur Specific [place] >= 1.030, Urine Protein Negative, Urine Glucose (UA) Negative, Urine Ketones Negative, Urine Blood Negative, Urine Nitrate Negative, Urine Bilirubin 1+ A, Urine Urobilinogen 1.0, Ur Leukocyte Esterase Negative, Urine WBC Occasional, Urine Bacteria Trace, Urine Mucus Trace 10/18/23 12:10 10/18/23 12:10 Orders (Tests/Meds): ED MEDICATIONS Generic Name Dose Route Start Last Admin Trade Name Freq PRN Reason Stop Dose Admin Hydrocodone Bitart/Acetaminophen 1 tab 10/18/23 14:10 Hydrocodone/Apap 5/325 Mg Tablet PO 11/17/23 14:09 Q4HP PRN Mild to Moderate Pain (1-6) Ampicillin Sodium/Sulbactam 100 mls @ 200 mls/hr 10/18/23 20:30 Sodium 3 gm/ Sodium Chloride IV 10/28/23 20:29 Q6H STAS Sodium Chloride 10 ml 10/18/23 12:17 Sodium Chloride 0.9% 10ml Flush Syringe IV 11/17/23 12:16 NEEDED PRN Maintain IV Site Discontinued Medications Generic Name Dose Route Start Last Admin Trade Name Freq PRN Reason Stop Dose Admin Acetaminophen 500 mg 10/18/23 12:01 10/18/23 12:16 Acetaminophen 500mg Tab PO 10/18/23 12:02 500 mg ONCE ONE Administration Lactated Ringer's 1,000 mls @ 999 mls/hr 10/18/23 12:26 10/18/23 12:30 Lactated Ringer's 1000 Ml Bag IV 10/18/23 13:26 999 mls/hr .Q1H1M ONE Administration Ampicillin Sodium 1 gm/ Sodium 50 mls @ 100 mls/hr 10/18/23 13:57 10/18/23 14:24 Chloride IV 10/18/23 14:26 Not Given ONCE ONE Ampicillin Sodium/Sulbactam 100 mls @ 200 mls/hr 10/18/23 14:30 10/18/23 14:32 Sodium 3 gm/ Sodium Chloride IV 10/18/23 14:59 200 mls/hr ONCE ONE Administration Iopamidol 75 ml 10/18/23 12:50 10/18/23 12:50 Iopamidol-370 (76%);100ml Bottle IV 10/18/23 12:51 75 ml ONCE ONE Administration Morphine Sulfate 4 mg 10/18/23 14:24 10/18/23 14:30 Morphine 4mg/Ml Syringe IV 10/18/23 14:25 4 mg ONCE ONE Administration Sodium Chloride 10 ml 10/18/23 12:50 10/18/23 12:50 Sodium Chloride 0.9% 10ml Syr (Rad Only) IV 11/17/23 12:49 10 ml NEEDED PRN Administration Maintain IV Site ORDERS Category Date Time Status CT abdomen pelvis w con Stat Cat Scan 10/18/23 12:01 Completed CBC w/Auto Diff [Complete Blood Count Auto Diff] Stat Lab 10/18/23 12:10 Completed CMP [Comprehensive Metabolic Panel] Stat Lab 10/18/23 12:10 Completed Complete Blood Count Auto Diff AMLAB Lab 10/19/23 06:00 Ordered Comprehensive Metabolic Panel AMLAB Lab 10/19/23 06:00 Ordered Lactic Acid Stat Lab 10/18/23 12:10 Completed Magnesium AMLAB Lab 10/19/23 06:00 Ordered Urinalysis and Microscopic Stat Lab 10/18/23 12:25 Completed Medical Decision Narrative: In summary, this 63year old male presents to the emergency department today with rectal pain. On initial evaluation patient is hemodynamically stable, afebrile, laying on his side due to pain when laying on his back or sitting. Rectal exam notable for internal hemorrhoids, no obvious thrombosed hemorrhoids, no fissures, no other signs of injury or trauma, he did have tenderness on exam. Patient also has tenderness into the left glute in the perirectal area, no erythema or induration associated. Differential diagnosis includes but is not limited to hemorrhoids, abscess, soft tissue infection, prostatitis. Based on these concerns, I ordered urinalysis, CT imaging of the abdomen/pelvis, basic labs. Patient received Tylenol for treatment. Labs personally reviewed demonstrate no leukocytosis or anemia, CMP with normal sodium, potassium, chloride, BUN slightly elevated at 21 with creatinine 0.8, c onsistent with mild prerenal changes, patient is already receiving IV fluids. UA negative for signs of infection CT imaging personally interpreted demonstrates findings consistent with perianal abscess. See radiology read for final interpretation. On reassessment patient remains stable. He is reassured by her workup, I discussed the possibility of admission with him and he is amenable to this. I had an interactive discussion with Dr. Wall with general surgery. He states they should be able to manage this at our facility and recommends Unasyn and admission to the hospitalist. I discussed the patient with Dr. Antonio with the hospitalist service and discussed the surgical recommendations. Dr. Antonio has accepted this patient for admission. Critical Care Critical Care Time Critical Care Time: No
[2023-10-18] MEDS: ACETAMINOPHEN 500MG TAB 500 MG PO (12:16)
[2023-10-18 12:22] LABS: Basophils # 0.1 K/mm3 (0-0.2); Basophils % 0.6 % (0.1-2.0); Eosinophils # 0.2 K/mm3 (0.0-0.4); Eosinophils % 1.7 % (0.1-12.0); Hematocrit 46.1 % (42.0-52.0); Lymphocytes # 1.5 K/mm3 (0.7-4.5); Lymphocytes % 15.5 % (10-50); Mean Corpuscular HGB Conc 34.8 g/dL (31.8-35.4); Mean Corpuscular Hemoglobin 30.6 pg (27.0-31.2); Mean Corpuscular Volume 87.9 fl (80-94); Mean Platelet Volume 7.8 fl (7.4-10.4); Monocytes # 0.9 K/mm3 (0.1-1.0); Neutrophils # 7.2 K/mm3 (1.8-7.8); Neutrophils % 73.2 % (37.0-80.0); Platelet Count 269 K/mm3 (142-424); Red Blood Count 5.25 M/mm3 (4.60-6.20); Red Cell Distribution Width 13.6 % (11.5-17.5); White Blood Count 9.9 K/mm3 (4.8-10.8)
[2023-10-18 12:26] LABS: Chloride 107 mmol/L (98-107); Potassium 4.1 mmoL/L (3.5-5.1); Sodium 140 mmol/L (136-145)
[2023-10-18 12:29] LABS: Alanine Aminotransferase 26 U/L (12-78); Albumin Level 3.6 g/dl (3.5-5.0); Albumin/Globulin Ratio 1.2 (1.1-1.8); Alkaline Phosphatase 100 U/L (38-126); Anion Gap 12.1 mEq/L (5-15); Aspartate Amino Transferase 30 U/L (17-59); Bilirubin,Total 0.6 mg/dl (0.2-1.3); Blood Urea Nitrogen 21 mg/dl (9-20); Carbon Dioxide 25 mmol/L (22.0-30.0); Creatinine Clearance Estimated 113 mL/min (50-200); Estimated Glomerular Filt Rate 98 ml/min (>60); GFR (African American) 119 ML/MIN (>60); Globulin 3.1 g/dL (1.3-3.2); Total Protein,Serum 6.7 g/dl (6.3-8.2)
[2023-10-18 12:30] LABS: Calcium 8.6 mg/dl (8.4-10.2); Glucose 92 mg/dl (74-100)
[2023-10-18] MEDS: LACTATED RINGERS 1000ML 1,000 ML 999 ML IV (12:30)
[2023-10-18 12:32] LABS: Microscopic, Urine URINE MICROSCOPIC (MICROSCOPIC)
[2023-10-18 12:35] LABS: Appearance,Urine CLEAR (Clear); Blood, Urine Negative (Negative); Color,Urine YELLOW (Yellow); Glucose,Urine (UA) Negative (Negative); Ketones,Urine Negative (Negative); Leukocyte Esterase,Urine Negative (Negative); Nitrate,Urine Negative (Negative); PH,Urine 5.5 (5.0-8.5); Protein,Urine Negative (Negative); Specific Gravity, Urine >= 1.030 (1.005-1.030)
[2023-10-18 12:36] LABS: Lactic Acid 1.1 mmol/L (0.7-2.1)
[2023-10-18 12:49] LABS: Bacteria,Urine Trace /lpf; Bilirubin,Urine 1+ (Negative); Mucus,Urine Trace /lpf; WBC,Urine Occasional #/hpf (0-3)
[2023-10-18] MEDS: IOPAMIDOL-370 (76%);100ML BOTTLE 75 ML IV (12:50)
[2023-10-18] MEDS: SODIUM CHLORIDE 0.9% 10ML SYR (RAD ONLY) 10 ML IV (12:50)
--- NOTE | 2023-10-18 13:50 | PC.NURSE ---
Dr. Mae corbin for consult.
--- NOTE | 2023-10-18 13:54 | PC.NURSE ---
Dr Anguiano speaking with Dr. Wall
--- NOTE | 2023-10-18 14:16 | EXP.HP ---
History of Present Illness *Admission Date: 10/18/23 *Reason for visit:: pain with wiping bottom *History of present illness: Mr. Frost is a 63-year-old male with history of hemorrhoids. He presented to the ER today for 1 week of worsening pain in his perianal region. States that a week ago he had a normal bowel movement but felt some burning that he thought was a hemorrhoid. He has been treating it over the past week with Tucks pads and rectal suppositories. Pain is actually gotten worse. States that today he had pain with placement of a suppository that radiated into the left gluteus and down his left leg. Denies any blood per rectum. No nausea or vomiting. No fever or chills. Of note did have URI symptoms with chills and bodyaches and runny nose last week. States he still has some congestion but denies any significant cough. Stools have become thinner in caliber, he is also noted a tender bulge in the posterior 3-6 o'clock region of his anus. Workup in the ER with CT of abdomen concerning for perianal abscess. Surgery consulted. Recommended admission. Medicine consulted for admission. Patient started on Unasyn in the ER. On evaluation he is stable on room air. Pain responded well to morphine. Labs reviewed and unremarkable with normal white cell count. Afebrile [facility] Disclaimer: The information contained in this section may have been updated after the patient was seen, as this information can be updated by other users. Medical History Family history of uterine cancer Family history- stomach cancer Family hx of colon cancer GERD (gastroesophageal reflux disease) History of diverticulitis History of gastroesophageal reflux (GERD) History of sinus problem Hx of skin cancer, basal cell Surgical History History of colonoscopy Family History Family history of cancer Social History Smoking Status: Current every day smoker tobacco type: e-cigarettes second hand exposure: Yes alcohol intake: never substance use type: denies use current occupational status: employed Travel in the last 8 weeks: None household members: spouse housing: house lives independently: Yes marital status: 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, 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: Yes special tim needs: No agree to transfusion: No do you feel safe at home: Yes victim of physical abuse: No victim of emotional abuse: No victim of sexual abuse: No would you like helpful sources: No Review of Systems Review of Systems Review of systems (narrative): 14 point review of systems performed, pertinent positives and negatives as per HPI Constitutional Constitutional: Denies headache(s) and Denies weakness ENT Ears, Nose, Mouth, and Throat: Denies dizziness and Denies headache(s) *Musculoskeletal Musculoskeletal: Denies numbness and Denies tingling *Neurologic Neurologic: Denies dizziness, Denies headache(s), Denies numbness, Denies tingling and Denies weakness Meds Home Medications and Allergies Home Medications Medication Instructions Recorded Confirmed Type omeprazole 40 mg capsule,delayed 40 mg PO DAILY Acid Reflux 08/11/21 10/18/23 History release New Prescriptions to Start Prescriptions: Allergies Allergy/AdvReac Type Severity Reaction Status Date / Time No Known Allergies Allergy Verified 10/18/23 15:34 Exam Data for Last 24 hours Vital signs and Labs for Last 24 Hours: Temp Pulse Resp BP Pulse Ox O2 Del Method 98.2 F 56 L 16 114/81 96 Room Air 10/18/23 11:09 10/18/23 12:30 10/18/23 11:09 10/18/23 12:30 10/18/23 12:30 10/18/23 11:15 Laboratory Results - last 24 hr 10/18/23 12:10: WBC 9.9, RBC 5.25, Hgb 16.0, Hct 46.1, MCV 87.9, MCH 30.6, MCHC 34.8, RDW 13.6, Plt Count 269, MPV 7.8, Neut % (Auto) 73.2, Lymph % (Auto) 15.5, [place] % (Auto) 9.0, Eos % (Auto) 1.7, Baso % (Auto) 0.6, Neut # (Auto) 7.2, Lymph # (Auto) 1.5, [place] # (Auto) 0.9, Eos # (Auto) 0.2, Baso # (Auto) 0.1, Sodium 140, Potassium 4.1, Chloride 107, Carbon Dioxide 25, Anion Gap 12.1, BUN 21 H, Creatinine 0.80, Estimated Creat Clear 113, Estimated GFR 98, Est GFR ( Amer) 119, Glucose 92, Lactate 1.1, Calcium 8.6, Total Bilirubin 0.6, AST 30, ALT 26, Alkaline Phosphatase 100, Total Protein 6.7, Albumin 3.6, Globulin 3.1, Albumin/Globulin Ratio 1.2 10/18/23 12:25: Urine Color Yellow, Urine Appearance Clear, Urine pH 5.5, Ur Specific [place] >= 1.030, Urine Protein Negative, Urine Glucose (UA) Negative, Urine Ketones Negative, Urine Blood Negative, Urine Nitrate Negative, Urine Bilirubin 1+ A, Urine Urobilinogen 1.0, Ur Leukocyte Esterase Negative, Urine WBC Occasional, Urine Bacteria Trace, Urine Mucus Trace I & O for Last 24 hours: Intake & Output 10/15/23 10/16/23 10/17/23 10/18/23 23:59 23:59 23:59 23:59 Weight 104.326 kg Constitutional Constitutional: no acute distress and average body habitus *Routine HEENT Exam Head: Present normocephalic Eye: Present EOMI and PERRL ENT: Present mucous membranes moist Comments: Sinus congestion, runny nose *Routine Neck Exam Neck: Present supple; Absent lymphadenopathy *Routine Respiratory Exam Respiratory: Present CTA bilaterally *Routine Cardiovascular Exam Cardiovascular: Present RRR *Routine Abdominal Exam Abdominal: Present soft and normoactive bowel sounds; Absent tenderness *Routine Rectal Exam Rectal:: deferred Comments:: Patient is already had multiple rectal exams, deferred due to current pain *Routine Genitalia Exam Genitalia:: deferred *Routine Extremities Exam Extremities: Absent cyanosis, clubbing or edema *Routine Skin Exam Skin: Present warm; Absent rash *Routine Neurological Exam Neurological: Present alert, oriented X3 and moving all extremities; Absent altered mental status Assessment and Plan *Assessment and plan (1) Perianal abscess: Status: Acute Category: Medical Code(s): K61.0 - Anal abscess (2) Upper respiratory infection: Status: Acute Category: Medical Code(s): J06.9 - Acute upper respiratory infection, unspecified (3) Tobacco use disorder: Status: Acute Category: Medical Code(s): F17.200 - Nicotine dependence, unspecified, uncomplicated Plan 63-year-old male with anal pain. Workup in ER concerning for perianal abscess. Discussed case with ER physician, request admission for continued IV antibiotics, surgical eval. Medicine agreed to admit. Surgery consulted. Problems addressed as follows: Perianal abscess -Surgery consulted, appreciate their recommendations. Discussed case, planning to take patient to surgery tomorrow for debridement. -Continue Unasyn every 6 hours IV. -Transition to hydrocodone 5 mg every 6 hours as needed for pain. Responded well to 4 mg IV morphine. If no response to hydrocodone, will add IV morphine. Initiate IV Toradol 30 mg every 6 hours as needed for pain -MiraLAX twice daily as stool softener for easier bowel movements. Recent URI last week, continues to have significant sinus drainage. Concern for sinus infection. Anticipate improvement with continued use of Unasyn as above. Tobacco use disorder: Nicotine patch as needed Full code Regular diet, n.p.o. at midnight Holding on DVT prophylaxis given surgery tomorrow and ambulatory status apace
--- NOTE | 2023-10-18 14:27 | HMH.PHAINT1 ---
Pharmacy Intervention Comments: MEDICATION RECONCILIATION COMPLETED ON PATIENT USING EXTERNAL FILL HISTORY FROM PHARMACY. -ANKIT PAEZ, [facility]ENTD
[2023-10-18] MEDS: MORPHINE 4MG/ML SYRINGE 4 MG IV (14:30)
[2023-10-18] MEDS: AMPICILLIN/SULBACTAM 3 GM in 0.9 % SODIUM CHLORIDE 100 ML IV ×2 (14:32→20:01)
--- NOTE | 2023-10-18 14:53 | P.CONS_ITS ---
History of Present Illness *Admission Date: 10/18/23 *Reason for visit:: Pain *History of present illness: Patient is a 63-year-old from [place] with approximately 1 week of ongoing rectal pain. He states that he felt burning and pain at his rectum when having a bowel movement and wiping. Denies any blood. Had tried [id number] hemorrhoid treatment without relief. He presented to the emergency department with these symptoms as they had been progressive over several days. Patient also noted pain radiating to the left gluteal area when coughing. Evaluation in the emergency department revealed no evidence of obvious thrombosed hemorrhoids although he did have some tenderness on examination. He underwent CT scan which revealed phlegmon versus developing abscess in the posterior perineal region . Surgery was contacted. Recommendations were for inpatient admission for initiation of antibiotics and surgical consultation. Fluid collection measures 2.7 x 1.9 cm. Of note, patient had undergone initial screening colonoscopy in August [address] Davenport and was found to have a large polyp (tubulovillous adenoma) in the distal sigmoid colon. He underwent follow-up colonoscopy 11/29/2022 at which point there was noted to be less than 10 mm polyp (tubular adenoma) proximal to this as well as some diverticulosis. 2-year follow-up colonoscopy was recommend ed. He has a family history of colon cancer in his sister. [facility] Disclaimer: The information contained in this section may have been updated after the patient was seen, as this information can be updated by other users. Medical History Family history of uterine cancer Family history- stomach cancer Family hx of colon cancer GERD (gastroesophageal reflux disease) History of diverticulitis History of gastroesophageal reflux (GERD) History of sinus problem Hx of skin cancer, basal cell Surgical History History of colonoscopy Family History Other Family history of cancer Social History Smoking Status: Current every day smoker tobacco type: e-cigarettes second hand exposure: Yes alcohol intake: never substance use type: denies use current occupational status: employed Travel in the last 8 weeks: None household members: spouse housing: house lives independently: Yes marital status: 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, 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 caffeine: Yes special tim needs: No agree to transfusion: No do you feel safe at home: Yes victim of physical abuse: No victim of emotional abuse: No victim of sexual abuse: No would you like helpful sources: No Review of Systems Constitutional Constitutional: Denies headache(s) and Denies weakness ENT Ears, Nose, Mouth, and Throat: Denies dizziness and Denies headache(s) *Musculoskeletal Musculoskeletal: Denies numbness and Denies tingling *Neurologic Neurologic: Denies dizziness, Denies headache(s), Denies numbness, Denies tingling and Denies weakness Meds Home Medications and Allergies Home Medications Medication Instructions Recorded Confirmed Type omeprazole 40 mg capsule,delayed 40 mg PO DAILY Acid Reflux 08/11/21 10/18/23 History release New Prescriptions to Start Prescriptions: Allergies Allergy/AdvReac Type Severity Reaction Status Date / Time No Known Allergies Allergy Verified 10/18/23 11:26 Exam (Inpt) Vital signs and Labs for Last 24 Hours: Temp Pulse Resp BP Pulse Ox O2 Del Method 98.2 F 60 16 122/79 98 Room Air 10/18/23 11:09 10/18/23 14:00 10/18/23 11:09 10/18/23 14:00 10/18/23 14:00 10/18/23 14:00 Laboratory Results - last 24 hr 10/18/23 12:10: WBC 9.9, RBC 5.25, Hgb 16.0, Hct 46.1, MCV 87.9, MCH 30.6, MCHC 34.8, RDW 13.6, Plt Count 269, MPV 7.8, Neut % (Auto) 73.2, Lymph % (Auto) 15.5, [place] % (Auto) 9.0, Eos % (Auto) 1.7, Baso % (Auto) 0.6, Neut # (Auto) 7.2, Lymph # (Auto) 1.5, [place] # (Auto) 0.9, Eos # (Auto) 0.2, Baso # (Auto) 0.1, Sodium 140, Potassium 4.1, Chloride 107, Carbon Dioxide 25, Anion Gap 12.1, BUN 21 H, Creatinine 0.80, Estimated Creat Clear 113, Estimated GFR 98, Est GFR ( Amer) 119, Glucose 92, Lactate 1.1, Calcium 8.6, Total Bilirubin 0.6, AST 30, ALT 26, Alkaline Phosphatase 100, Total Protein 6.7, Albumin 3.6, Globulin 3.1, Albumin/Globulin Ratio 1.2 10/18/23 12:25: Urine Color Yellow, Urine Appearance Clear, Urine pH 5.5, Ur Specific [place] >= 1.030, Urine Protein Negative, Urine Glucose (UA) Negative, Urine Ketones Negative, Urine Blood Negative, Urine Nitrate Negative, Urine Bilirubin 1+ A, Urine Urobilinogen 1.0, Ur Leukocyte Esterase Negative, Urine WBC Occasional, Urine Bacteria Trace, Urine Mucus Trace I & O for Labs for Last 24 Hours: Intake & Output 10/16/23 10/17/23 10/18/23 10/19/23 11:59 11:59 11:59 11:59 Weight 230 lb Constitutional: no acute distress Respiratory: Present CTA bilaterally Cardiac: Present Regular Rate Comments:: External anal examination unremarkable. In the left posterior midline anal location there is mild induration and tenderness without erythema. Digital examination deferred. Rectal (male): Present deferred Results Labs 10/18/23 12:10 10/18/23 12:10 Labs: Laboratory Results - last 24 hr 10/18/23 12:10: WBC 9.9, RBC 5.25, Hgb 16.0, Hct 46.1, MCV 87.9, MCH 30.6, MCHC 34.8, RDW 13.6, Plt Count 269, MPV 7.8, Neut % (Auto) 73.2, Lymph % (Auto) 15.5, [place] % (Auto) 9.0, Eos % (Auto) 1.7, Baso % (Auto) 0.6, Neut # (Auto) 7.2, Lymph # (Auto) 1.5, [place] # (Auto) 0.9, Eos # (Auto) 0.2, Baso # (Auto) 0.1, Sodium 140, Potassium 4.1, Chloride 107, Carbon Dioxide 25, Anion Gap 12.1, BUN 21 H, Creatinine 0.80, Estimated Creat Clear 113, Estimated GFR 98, Est GFR ( Amer) 119, Glucose 92, Lactate 1.1, Calcium 8.6, Total Bilirubin 0.6, AST 30, ALT 26, Alkaline Phosphatase 100, Total Protein 6.7, Albumin 3.6, Globulin 3.1, Albumin/Globulin Ratio 1.2 10/18/23 12:25: Urine Color Yellow, Urine Appearance Clear, Urine pH 5.5, Ur Specific [place] >= 1.030, Urine Protein Negative, Urine Glucose (UA) Negative, Urine Ketones Negative, Urine Blood Negative, Urine Nitrate Negative, Urine Bi lirubin 1+ A, Urine Urobilinogen 1.0, Ur Leukocyte Esterase Negative, Urine WBC Occasional, Urine Bacteria Trace, Urine Mucus Trace Assessment and Plan *Assessment and plan (1) Perianal abscess: Status: Acute Category: Medical Code(s): K61.0 - Anal abscess Plan Patient has evidence of complex perianal abscess. Recommend initiation of IV antibiotics. Plan will be for incision and drainage. May need exam under anesthesia with transanal drainage.
--- NOTE | 2023-10-18 15:11 | PC.NURSE ---
report called to receiving RN
--- NOTE | 2023-10-18 15:25 | PC.NURSE ---
Pt. on floor and Dr. Wall speaking to patient.
[2023-10-18] MEDS: HYDROCODONE/APAP 5/325 MG TABLET 1 TAB PO (17:01)
[2023-10-18] MEDS: KETOROLAC 30MG/ML VIAL 30 MG IV (18:00)
[2023-10-18] MEDS: POLYETHYLENE GLYCOL 3350 17 GM PACKET PO (20:01)
[2023-10-19] VITALS (19 sets, daily range): BP systolic 100–134; BP diastolic 48–86; PULSE 57–97; RESP 17–20; TEMP 36.3–36.8; O2SAT 90–95; BMI 28.3
[2023-10-19] MEDS: KETOROLAC 30MG/ML VIAL 30 MG IV ×2 (01:28→08:41)
[2023-10-19] MEDS: AMPICILLIN/SULBACTAM 3 GM in 0.9 % SODIUM CHLORIDE 100 ML IV ×4 (01:31→20:28)
[2023-10-19] MEDS: HYDROCODONE/APAP 5/325 MG TABLET 1 TAB PO (02:07)
--- NOTE | 2023-10-19 04:46 | PC.NURSE ---
Patient has slept intermittently thus far in shift. Patient c/o of pain x1, treated per MAR with relief. Patient has been NPO since midnight. Family remains at bedside.
[2023-10-19 06:28] LABS: Basophils # 0.1 K/mm3 (0-0.2); Basophils % 0.5 % (0.1-2.0); Eosinophils # 0.3 K/mm3 (0.0-0.4); Eosinophils % 2.3 % (0.1-12.0); Hematocrit 43.7 % (42.0-52.0); Lymphocytes # 2.3 K/mm3 (0.7-4.5); Mean Corpuscular HGB Conc 34.3 g/dL (31.8-35.4); Mean Corpuscular Hemoglobin 30.2 pg (27.0-31.2); Mean Corpuscular Volume 88.1 fl (80-94); Mean Platelet Volume 7.9 fl (7.4-10.4); Monocytes # 1.2 K/mm3 (0.1-1.0); Monocytes % 10.1 % (1.7-9.3); Neutrophils # 7.8 K/mm3 (1.8-7.8); Neutrophils % 67.2 % (37.0-80.0); Platelet Count 270 K/mm3 (142-424); Red Blood Count 4.96 M/mm3 (4.60-6.20); Red Cell Distribution Width 13.6 % (11.5-17.5); White Blood Count 11.6 K/mm3 (4.8-10.8)
[2023-10-19 06:30] LABS: Chloride 110 mmol/L (98-107); Potassium 3.9 mmoL/L (3.5-5.1); Sodium 140 mmol/L (136-145)
[2023-10-19 06:32] LABS: Alanine Aminotransferase 23 U/L (12-78); Aspartate Amino Transferase 26 U/L (17-59); Blood Urea Nitrogen 19 mg/dl (9-20); Creatinine Clearance Estimated 105 mL/min (50-200); Estimated Glomerular Filt Rate 86 ml/min (>60); GFR (African American) 103 ML/MIN (>60)
[2023-10-19 06:33] LABS: Albumin Level 3.2 g/dl (3.5-5.0); Albumin/Globulin Ratio 1.2 (1.1-1.8); Alkaline Phosphatase 88 U/L (38-126); Anion Gap 9.9 mEq/L (5-15); Bilirubin,Total 0.5 mg/dl (0.2-1.3); Carbon Dioxide 24 mmol/L (22.0-30.0); Globulin 2.7 g/dL (1.3-3.2); Glucose 92 mg/dl (74-100); Total Protein,Serum 5.9 g/dl (6.3-8.2)
[2023-10-19] MEDS: POLYETHYLENE GLYCOL 3350 17 GM PACKET PO ×2 (08:06→20:28)
--- NOTE | 2023-10-19 11:43 | P.PNANES_ITS ---
[facility] Disclaimer: The information contained in this section may have been updated after the patient was seen, as this information can be updated by other users. Medical History Family history of uterine cancer Family history- stomach cancer Family hx of colon cancer GERD (gastroesophageal reflux disease) History of diverticulitis History of gastroesophageal reflux (GERD) History of sinus problem Hx of skin cancer, basal cell Surgical History History of colonoscopy Family History Family history of cancer Social History Smoking Status: Current every day smoker tobacco type: e-cigarettes second hand exposure: Yes alcohol intake: never substance use type: denies use current occupational status: employed Travel in the last 8 weeks: None household members: spouse housing: house lives independently: Yes marital status: 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, 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 caffeine: Yes special tim needs: No agree to transfusion: No do you feel safe at home: Yes victim of physical abuse: No victim of emotional abuse: No victim of sexual abuse: No would you like helpful sources: No [facility] Anesthesia Checklist Patient Identification Patient Identification: Arm Band Structural Data Admitted From: Inpatient Planned Operative Procedure/s: I&D Perianal Abscess Consent for Planned Operative Procedure(s) Verified: Yes Verified Documents: Surgical Consent and History and Physical NPO Status Verified Time NPO: 00:00 Additional verifications Anesthesia Reactions: No Hx Blood Transfusions: No Blood Transfusion Reaction: No Airway Assessment Mallampati Score:: Class II C-Spine Mobility Assessed: Yes TMJ Mobility Assessed: Yes Dentition: Good Dentition Neurological Assessment Level of Consciousness: Awake and Alert Anesthesia Plan Anesthesia Risk discussed: Yes Anesthesia Plan: Verified ASA Class: II Anesthesia Type: General
[2023-10-19] MEDS: CLINDAMYCIN PHOSPHATE 900 MG in 0.9 % SODIUM CHLORIDE 50 ML 50 MG IV (12:25)
--- NOTE | 2023-10-19 12:57 | P.OP_ITS ---
Date of procedure: 10/19/23 Pre-op Diagnosis:: Perianal abscess Post-op Diagnosis:: Same Procedure performed:: Transanal incision and drainage complex perianal abscess Surgeon:: Tam Wall MD DIRECTOR OF CLINICAL APPLICATIONS:: Other Anesthesia: LMA Estimated blood loss (mL): 5 Clinical Note:: Patient is a 63-year-old from [place] with approximately 1 week of ongoing rectal pain. He states that he felt burning and pain at his rectum when having a bowel movement and wiping. Denies any blood. Had tried [id number] hemorrhoid treatment without relief. He presented to the emergency department with these symptoms as they had been progressive over several days. Patient also noted pain radiating to the left gluteal area when coughing. Evaluation in the emergency department revealed no evidence of obvious thrombosed hemorrhoids although he did have some tenderness on exam ination. He underwent CT scan which revealed phlegmon versus developing abscess in the posterior perineal region . Surgery was contacted. Recommendations were for inpatient admission for initiation of antibiotics and surgical consultation. Fluid collection measures 2.7 x 1.9 cm. Of note, patient had undergone initial screening colonoscopy in August [address] Davenport and was found to have a large polyp (tubulovillous adenoma) in the distal sigmoid colon. He underwent follow-up colonoscopy 11/29/2022 at which point there was noted to be less than 10 mm polyp (tubular adenoma) proximal to this as well as some diverticulosis. 2-year follow-up colonoscopy was recommended. He has a family history of colon cancer in his sister. Patient was initiated on intravenous Unasyn. Symptoms persisted. He did develop somewhat of a mild leukocytosis. Plan was made for incision and drainage possibly transanally in the operating room. Operative findings:: Moderate left perianal abscess, possibly intersphincteric Operative note:: Consent was obtained patient was taken the operating room. He was positioned in supine position. He was given additional intravenous antibiotics preoperatively. General anesthesia was induced via LMA. He was then positioned in lithotomy position. Perineum was prepped and draped in the standard surgical fashion. Examination was performed and there was some mild induration in the left posterior lateral location. There was no fluctuance. Digital examination was performed which revealed some firmness in the left posterior lateral location internally. [place] anoscope was inserted and inspection was carried out. Limited digital pressure internally resulted in pus exuding from the abscess pocket. This was sent for culture. Rectal vault was thoroughly irrigated. The abscess pocket was then opened up somewhat more did she had to leave the to free any loculations and fully evacuate the abscess pocket. Additional irrigation was performed. There appeared to be decent hemostasis. Local anesthetic was infiltrated consisting of approximately 20 cc of half percent bupivacaine with epinephrine. Gelfoam roll was then soaked in additional topical anesthesia and inserted into the anal canal. Condition: stable Disposition: PACU Complications:: None immediately apparent
--- NOTE | 2023-10-19 13:16 | P.PNANES_ITS ---
[facility] Anesthesia Record Part I Anesthesia Record I Intake, IV Amount: 400 Hydration: Adequate Estimated blood loss (mL): 20 Urine output (mL): 0 Blood Products used (#): none Blood Pressure: 110/66 SaO2: 91 Pulse Rate: 67 Airway Patency: Patent Respiratory Rate: 20 Temperature: 97.3 F Patient is:: Drowsy and Stable Stable to PACU at:: 12:52
--- NOTE | 2023-10-19 17:46 | PC.NURSE ---
Pt alert and oriented. Pt ambulates in the room independently. Post I&D, pt states no bleeding or complications. Pt has had partial bowel movement, states no issues. Pt has been in no pain since procedure. Post op vital signs have all been stable. Lung sounds clear. Abdomen soft and nontender, bowel sounds active. Call light in reach.
--- NOTE | 2023-10-19 18:09 | P.PN_ITS ---
Subjective *Date: 10/19/23 *Time: 18:09 Interval history: Patient taken for I&D today. Tolerated procedure well. Stable on room air. Afebrile. Medical Exam Vital signs and Labs for Last 24 Hours: Vital Signs Temp Pulse Pulse Resp BP BP Pulse Ox 10/19/23 17:15 71 18 122/71 94 L 10/19/23 17:00 10/19/23 16:15 69 18 134/71 94 L 10/19/23 15:45 73 17 124/68 91 L 10/19/23 15:00 10/19/23 15:15 97.6 F 69 18 131/70 94 L 10/19/23 14:45 68 18 118/68 93 L 10/19/23 14:15 67 19 115/64 92 L 10/19/23 14:00 69 18 133/69 93 L 10/19/23 13:45 65 18 118/69 93 L 10/19/23 13:30 97.6 F 97 H 19 120/76 94 L 10/19/23 13:22 65 18 123/86 95 10/19/23 13:12 65 18 113/69 95 10/19/23 13:02 65 18 117/68 94 L 10/19/23 12:52 97.3 F L 65 18 110/76 90 L 10/19/23 10:51 10/19/23 08:44 10/19/23 08:00 97.9 F 65 18 100/58 L 93 L 10/19/23 08:00 10/19/23 06:51 10/19/23 05:00 10/19/23 04:00 98.2 F 57 L 18 102/53 L 92 L 10/19/23 03:00 10/19/23 01:00 10/18/23 23:00 10/18/23 21:00 10/18/23 20:00 10/18/23 20:00 98.0 F 87 16 100/54 L 94 L 10/19/23 13:17 97.3 F L 67 20 110/66 O2 Del Method O2 Flow Rate 10/19/23 17:15 Room Air 10/19/23 17:00 Room Air 10/19/23 16:15 Room Air 10/19/23 15:45 Room Air 10/19/23 15:00 Room Air 10/19/23 15:15 Room Air 10/19/23 14:45 Room Air 10/19/23 14:15 Room Air 10/19/23 14:00 Room Air 10/19/23 13:45 Room Air 10/19/23 13:30 Room Air 10/19/23 13:22 Nasal Cannula 2 10/19/23 13:12 Nasal Cannula 2 10/19/23 13:02 Nasal Cannula 2 10/19/23 12:52 Nasal Cannula 4 10/19/23 10:51 Room Air 10/19/23 08:44 Room Air 10/19/23 08:00 Room Air 10/19/23 08:00 Room Air 10/19/23 06:51 Room Air 10/19/23 05:00 Room Air 10/19/23 04:00 Room Air 10/19/23 03:00 Room Air 10/19/23 01:00 Room Air 10/18/23 23:00 Room Air 10/18/23 21:00 Room Air 10/18/23 20:00 Room Air 10/18/23 20:00 Room Air 10/19/23 13:17 Intake and Output 10/19/23 10/19/23 10/19/23 07:59 15:59 23:59 Intake Total 600 / 720 120 / 720 Output Total 0 / 0 0 / 0 Balance 0 / 720 600 / 720 120 / 720 Intake: Intake, Oral Amount 120 / 120 Intake, Total IV Amount 600 / 600 Ampicillin/Sulbactam 3 gm In 0. 200 / 200 9 % Sodium Chloride 100 ml @ 200 mls/hr IV Q6H [facility] Rx#: [id number] Output: Output, Urine Amount 0 / 0 0 / 0 Other: Number of Voids 0 Number of Unmeasured Voids 1 1 Weight 97.114 kg Patient Weight 10/19/23 23:59 Weight 97.114 kg Laboratory Results - last 24 hr 10/19/23 06:15: WBC 11.6 H, RBC 4.96, Hgb 15.0, Hct 43.7, MCV 88.1, MCH 30.2, MCHC 34.3, RDW 13.6, Plt Count 270, MPV 7.9, Neut % (Auto) 67.2, Lymph % (Auto) 20.0, [place] % (Auto) 10.1 H, Eos % (Auto) 2.3, Baso % (Auto) 0.5, Neut # (Auto) 7.8, Lymph # (Auto) 2.3, [place] # (Auto) 1.2 H, Eos # (Auto) 0.3, Baso # (Auto) 0.1, Sodium 140, Potassium 3.9, Chloride 110 H, Carbon Dioxide 24, Anion Gap 9.9, BUN 19, Creatinine 0.90, Estimated Creat Clear 105, Estimated GFR 86, Est GFR ( Amer) 103, Glucose 92, Calcium 8.0 L, Magnesium 2.0, Total B ilirubin 0.5, AST 26, ALT 23, Alkaline Phosphatase 88, Total Protein 5.9 L, Albumin 3.2 L D, Globulin 2.7, Albumin/Globulin Ratio 1.2 I & O for Labs for Last 24 Hours: Intake & Output 10/16/23 10/17/23 10/18/23 10/19/23 23:59 23:59 23:59 23:59 Intake Total 480 / 480 720 / 720 Output Total 2 / 2 0 / 0 Balance 478 / 478 720 / 720 Weight 96.162 kg 97.114 kg Constitutional: Present no acute distress Head: Present atraumatic ENT: Present normal exam Respiratory: Present normal respiratory effort; Absent rhonchi, wheezes or crackles Cardiac: Present Reg Rate and Rhythm GI: Present normal bowel sounds; Absent tenderness Extremities: Present normal inspection and full ROM Skin: Present intact; Absent erythema Neuro: Present Grossly Intact, alert, awake, oriented x 3 and moves all extremities Assessment and Plan *Assessment and plan (1) Perianal abscess: Status: Acute Category: Medical Code(s): K61.0 - Anal abscess (2) Upper respiratory infection: Status: Acute Category: Medical Code(s): J06.9 - Acute upper respiratory infection, unspecified (3) Tobacco use disorder: Status: Acute Category: Medical Code(s): F17.200 - Nicotine dependence, unspecified, uncomplicated Plan 63-year-old male with anal pain. Workup in ER concerning for perianal abscess. Discussed case with ER physician, request admission for continued IV antibiotics, surgical eval. Medicine agreed to admit. Taken for surgery this morning for I&D. Tolerated procedure well. Continues to require inpatient management for IV antibiotics for 24 more hours, anticipate discharge tomorrow. Problems addressed as follows: Perianal abscess -Surgery consulted, appreciate their recommendations. Discussed case, taken this morning for I&D. Successful drainage. Continue Unasyn every 6 hours IV for 24 more hours. -Transition to Augmentin p.o. at discharge to complete course of antibiotics. -Transition to hydrocodone 5 mg every 6 hours as needed for pain. IV Toradol 30 mg every 6 hours as needed for pain -MiraLAX twice daily as stool softener for easier bowel movements. Recent URI last week, continues to have significant sinus drainage. Concern for sinus infection. Anticipate improvement with continued use of Unasyn as above. Tobacco use disorder: Nicotine patch as needed Full code Regular diet
[2023-10-20] VITALS: BP 101/52; PULSE 59; RESP 16; TEMP 36.8; O2SAT 93
[2023-10-20] MEDS: AMPICILLIN/SULBACTAM 3 GM in 0.9 % SODIUM CHLORIDE 100 ML IV ×2 (02:30→08:20)
[2023-10-20 04:00] VITALS: BP 103/65; PULSE 57; RESP 18; TEMP 36.7; O2SAT 91; BMI 29.2
--- NOTE | 2023-10-20 05:41 | PC.NURSE ---
Patient has had a great night. Has not complained of pain at all. Did do a stiz bath last night before bed. No other issues noted
[2023-10-20 06:53] LABS: Chloride 108 mmol/L (98-107)
[2023-10-20 06:54] LABS: Basophils % 0.3 % (0.1-2.0); Eosinophils # 0.1 K/mm3 (0.0-0.4); Eosinophils % 0.3 % (0.1-12.0); Hematocrit 41.1 % (42.0-52.0); Hemoglobin 14.1 g/dL (14.1-18.0); Lymphocytes # 1.9 K/mm3 (0.7-4.5); Mean Corpuscular HGB Conc 34.4 g/dL (31.8-35.4); Mean Corpuscular Hemoglobin 30.7 pg (27.0-31.2); Mean Corpuscular Volume 89.4 fl (80-94); Monocytes # 1.3 K/mm3 (0.1-1.0); Monocytes % 8.8 % (1.7-9.3); Neutrophils # 11.6 K/mm3 (1.8-7.8); Neutrophils % 77.7 % (37.0-80.0); Platelet Count 251 K/mm3 (142-424); Potassium 4.1 mmoL/L (3.5-5.1); Red Cell Distribution Width 13.6 % (11.5-17.5); Sodium 138 mmol/L (136-145); White Blood Count 14.9 K/mm3 (4.8-10.8)
[2023-10-20 06:56] LABS: Alanine Aminotransferase 24 U/L (12-78); Aspartate Amino Transferase 29 U/L (17-59); Blood Urea Nitrogen 17 mg/dl (9-20); Creatinine Clearance Estimated 108 mL/min (50-200); Estimated Glomerular Filt Rate 86 ml/min (>60); GFR (African American) 103 ML/MIN (>60)
[2023-10-20 06:57] LABS: Albumin/Globulin Ratio 1.1 (1.1-1.8); Alkaline Phosphatase 91 U/L (38-126); Anion Gap 8.1 mEq/L (5-15); Bilirubin,Total 0.5 mg/dl (0.2-1.3); Carbon Dioxide 26 mmol/L (22.0-30.0); Globulin 2.8 g/dL (1.3-3.2); Glucose 111 mg/dl (74-100); Magnesium 2.1 mg/dl (1.6-2.3); Total Protein,Serum 5.8 g/dl (6.3-8.2)
--- NOTE | 2023-10-20 07:27 | P.DS_ITS ---
General Admission date:: 10/18/23 Discharge date: 10/20/23 HPI HPI HPI: Mr. Frost is a 63-year-old male with history of hemorrhoids. He presented to the ER today for 1 week of worsening pain in his perianal region. States that a week ago he had a normal bowel movement but felt some burning that he thought was a hemorrhoid. He has been treating it over the past week with Tucks pads and rectal suppositories. Pain is actually gotten worse. States that today he had pain with placement of a suppository that radiated into the left gluteus and down his left leg. Denies any blood per rectum. No nausea or vomiting. No fever or chills. Of note did have URI symptoms with chills and bodyaches and runny nose last week. States he still has some congestion but denies any significant cough. Stools have become thinner in caliber, he is also noted a tender bulge in the posterior 3-6 o'clock region of his anus. Workup in the ER with CT of abdomen concerning for perianal abscess. Surgery consulted. Re commended admission. Medicine consulted for admission. Patient started on Unasyn in the ER. On evaluation he is stable on room air. Pain responded well to morphine. Labs reviewed and unremarkable with normal white cell count. Afebrile Hospital Course Hospital Course Hospital Course: 63-year-old male with anal pain. Workup in ER concerning for perianal abscess. Discussed case with ER physician, request admission for continued IV antibiotics, surgical eval. Medicine agreed to admit. Taken for surgery this morning for I&D. Tolerated procedure well. Completed 48 hours of IV antibiotics, tolerating p.o. intake. Stable for discharge home. Close follow- up with surgery. Problems addressed as follows: Perianal abscess -Surgery consulted, appreciate their recommendations. Discussed case, taken for I&D on 10/19. Successful drainage of abscess. Treated with Unasyn every 6 hours during admission. Transition to Augmentin to complete course of antibiotics. Pain fairly well-tolerated, course of hydrocodone sent on discharge for continued pain control as an outpatient. Plan for close follow-up next week with surgery for further evaluation. Initiated on MiraLAX twice daily as stool softener to avoid constipation. Goal 1-2 bowel movements daily. Recommend sitz bath's twice daily and as needed. Stable for discharge home to complete course of treatment. Patient afebrile and hemodynamically stable. White cell count bumped on day of discharge to 14.9, suspect reactive after surgical intervention and drainage. Recent URI last week, sinus drainage improved somewhat with antibiotics during admission. Stable for discharge home. Exam Data for Last 24 hours Vital signs and Labs for Last 24 Hours: Temp Pulse Resp BP Pulse Ox O2 Del Method O2 Flow Rate 98.1 F 57 L 18 103/65 L 91 L Room Air 2 10/20/23 04:00 10/20/23 04:00 10/20/23 04:00 10/20/23 04:00 10/20/23 04:00 10/20/23 06:58 10/19/23 13:22 Laboratory Results - last 24 hr 10/20/23 06:27: WBC 14.9 H D, RBC 4.60, Hgb 14.1, Hct 41.1 L, MCV 89.4, MCH 30.7, MCHC 34.4, RDW 13.6, Plt Count 251, MPV 8.0, Neut % (Auto) 77.7, Lymph % (Auto) 13.0, [place] % (Auto) 8.8, Eos % (Auto) 0.3, Baso % (Auto) 0.3, Neut # (Auto) 11.6 H, Lymph # (Auto) 1.9, [place] # (Auto) 1.3 H, Eos # (Auto) 0.1, Baso # (Auto) 0.0, Sodium 138, Potassium 4.1, Chloride 108 H, Carbon Dioxide 26, Anion Gap 8.1, BUN 17, Creatinine 0.90, Estimated Creat Clear 108, Estimated GFR 86, Est GFR ( Amer) 103, Glucose 111 H, Calcium 8.0 L, Magnesium 2.1, Total Bilirubin 0.5, AST 29, ALT 24, Alkaline Phosphatase 91, Total Protein 5.8 L, Albumin 3.0 L, Globulin 2.8, Albumin/Globulin Ratio 1.1 I & O for Last 24 hours: Intake & Output 10/17/23 10/18/23 10/19/23 10/20/23 23:59 23:59 23:59 23:59 Intake Total 480 / 480 720 / 970 250 / 250 Output Total 2 / 2 0 / 0 0 / 0 Balance 478 / 478 720 / 970 250 / 250 Weight 96.162 kg 97.114 kg 100.017 kg Constitutional Constitutional: no acute distress *Routine HEENT Exam Head: Present normocephalic Eye: Present EOMI and PERRL ENT: Present mucous membranes moist *Routine Neck Exam Neck: Present supple; Absent lymphadenopathy *Routine Respiratory Exam Respiratory: Present CTA bilaterally *Routine Cardiovascular Exam Cardiovascular: Present RRR *Routine Abdominal Exam Abdominal: Present soft and normoactive bowel sounds; Absent tenderness *Routine Extremities Exam Extremities: Absent cyanosis, clubbing or edema *Routine Skin Exam Skin: Present warm; Absent rash *Routine Neurological Exam Neurological: Present alert and oriented X3 Results Data Completed and Pending Labs on day of discharge: Labs from last 24 hours 10/20/23 06:27 WBC 14.9 H D RBC 4.60 Hgb 14.1 Hct 41.1 L MCV 89.4 MCH 30.7 MCHC 34.4 RDW 13.6 Plt Count 251 MPV 8.0 Neut % (Auto) 77.7 Lymph % (Auto) 13.0 [place] % (Auto) 8.8 Eos % (Auto) 0.3 Baso % (Auto) 0.3 Neut # (Auto) 11.6 H Lymph # (Auto) 1.9 [place] # (Auto) 1.3 H Eos # (Auto) 0.1 Baso # (Auto) 0.0 Sodium 138 Potassium 4.1 Chloride 108 H Carbon Dioxide 26 Anion Gap 8.1 BUN 17 Creatinine 0.90 Estimated Creat Clear 108 Estimated GFR 86 Est GFR ( Amer) 103 Glucose 111 H Calcium 8.0 L Magnesium 2.1 Total Bilirubin 0.5 AST 29 ALT 24 Alkaline Phosphatase 91 Total Protein 5.8 L Albumin 3.0 L Globulin 2.8 Albumin/Globulin Ratio 1.1 DS: Diagnosis Discharge Diagnosis (1) Perianal abscess: Status: Acute Code(s): K61.0 - Anal abscess (2) Upper respiratory infection: Status: Acute Code(s): J06.9 - Acute upper respiratory infection, unspecified (3) Tobacco use disorder: Status: Acute Code(s): F17.200 - Nicotine dependence, unspecified, uncomplicated Meds Home Medications and Allergies Home Medications Medication Instructions Recorded Confirmed Type omeprazole 40 mg capsule,delayed 40 mg PO DAILY Acid Reflux 08/11/21 10/18/23 History release amoxicillin 875 mg-potassium 1 tab PO BID #20 tabs 10/19/23 Rx clavulanate 125 mg tablet hydrocodone 5 mg-acetaminophen 325 1 - 2 tab PO Q6H PRN Pain #21 tabs 10/19/23 Rx mg tablet polyethylene glycol 3350 17 gram 17 g PO BID 14 days #510 grams 10/20/23 Rx oral powder packet (Miralax) New Prescriptions to Start Prescriptions: amoxicillin-pot clavulanate Tam Wall hydrocodone-acetaminophen Tam Wall polyethylene glycol 3350 [Miralax] Alec Antonio Allergies Allergy/AdvReac Type Severity Reaction Status Date / Time No Known Allergies Allergy Verified 10/18/23 15:34 Discharge Plan Disposition Patient Disposition: Home, Self-Care Condition: Fair Follow up Plan Follow up with: Tam Wall MD [Staff Physician] - 10/25/23 10:15 am Prescriptions/Medication Reconciliation: New hydrocodone-acetaminophen 5-325 mg Tablet 1 - 2 tab PO Q6H PRN (Reason: Pain) Qty: 21 0RF amoxicillin-pot clavulanate 875-125 mg tablet 1 tab PO BID Qty: 20 0RF polyethylene glycol 3350 [Miralax] 17 gram Powder In Packet 17 g PO BID 14 Days Qty: 510 0RF Continued omeprazole 40 mg capsule,delayed release(DR/EC) 40 mg PO DAILY Problem Reconciliation Problems Reviewed?: Yes Patient Discharge Instructions ACTIVITY: Continue current activity DIET: continue same diet Additional Instructions: Sitz bath twice daily and as needed. OK to use warm water or hibiclens. Patient Instructions: DI for Surgical Site Infection, Surgical Site Infection, DI for Incision and Drainage, DI for Anal Abscess Providers Primary Care Provider: Oc Antonio Admit Provider: Alec Antonio Attending Provider: Alec Antonio
[2023-10-20 08:00] VITALS: BP 114/73; PULSE 76; RESP 21; TEMP 36.6; O2SAT 95
[2023-10-20] MEDS: SENNOSIDES 8.6MG/DOCUSATE 50MG TABLET 1 TAB PO (08:20)
[2023-10-20] MEDS: POLYETHYLENE GLYCOL 3350 17 GM PACKET PO (08:20)
--- NOTE | 2023-10-23 05:23 | P.PNANES_ITS ---
[facility] Anesthesia Record Part II Anesthesia Record Part II Discharge Time: 13:22 Destination: Medical Surgical Department PACU nurse assessment reviewed?: Yes Patient Condition:: Good Anesthesia Complications:: None Swallowing reflex intact?: Yes Airway Patency: Patent Cyanosis?: No Blood Pressure: 123/86 SaO2: 95 Respiratory Rate: 18 Pulse Rate: 65 Temperature: 97.6 F Mental Status: Alert & Oriented Pain level:: 0 Nausea and/or vomitting:: None Intake, IV Amount: 0 Hydration: Adequate
[2023-10-23 05:24] VITALS: BP 123/86; PULSE 65; RESP 18; TEMP 36.4; O2SAT 95
--- NOTE | 2023-10-23 13:54 | CARE MANAGER ---
Contacted patient related to hospital discharge. he picked up his medications and is aware of his follow up appointment. He reports a lot of pain yesterday at the incision site, but it is better today. Denies questions or concerns. ALYSA Deal
== END 2023-10-20 10:27 | disposition home or self-care (01) ==
LOC: ER 12:44 → 2ND 15:48
PROVIDERS: Surgery; Admitting Provider Internal Medicine Adolescent Medicine; Emergency Provider Emergency Medicine; PCP Internal Medicine; Visit Provider Internal Medicine Adolescent Medicine
PROC: (CPT 46050; principal; 2023-10-19 12:30)
DX: K61.0 Anal abscess (principal); J06.9 Acute upper respiratory infection, unspecified; F17.210 Nicotine dependence, cigarettes, uncomplicated
CPT/HCPCS: 46050; 36415; 74177; 80053; 81001; 83605; 83735; 85025; 87070; 87075; 87205; 96374; 99285; G0378; J2405; Q9967

== ENCOUNTER 2023-10-30 11:51 | Day surgery (SDC) | payer BC, SELFPAY ==
[2023-10-30] VITALS (7 sets, daily range): BP systolic 111–138; BP diastolic 70–85; PULSE 71–77; RESP 16–19; TEMP 36.2–36.4; O2SAT 94–97; BMI 28.8
[2023-10-30 12:26] LABS: Basophils # 0.1 K/mm3 (0-0.2); Basophils % 0.5 % (0.1-2.0); Eosinophils # 0.3 K/mm3 (0.0-0.4); Eosinophils % 2.4 % (0.1-12.0); Hematocrit 50.1 % (42.0-52.0); Lymphocytes # 1.9 K/mm3 (0.7-4.5); Lymphocytes % 13.8 % (10-50); Mean Corpuscular HGB Conc 33.8 g/dL (31.8-35.4); Mean Corpuscular Hemoglobin 30.4 pg (27.0-31.2); Mean Corpuscular Volume 89.9 fl (80-94); Mean Platelet Volume 7.5 fl (7.4-10.4); Monocytes % 7.6 % (1.7-9.3); Neutrophils # 10.4 K/mm3 (1.8-7.8); Neutrophils % 75.8 % (37.0-80.0); Platelet Count 370 K/mm3 (142-424); Red Blood Count 5.57 M/mm3 (4.60-6.20); Red Cell Distribution Width 13.6 % (11.5-17.5); White Blood Count 13.8 K/mm3 (4.8-10.8)
--- NOTE | 2023-10-30 12:33 | EXP.ANES.CKL ---
[facility] Disclaimer: The information contained in this section may have been updated after the patient was seen, as this information can be updated by other users. Medical History Family history of uterine cancer Family history- stomach cancer Family hx of colon cancer GERD (gastroesophageal reflux disease) History of diverticulitis History of gastroesophageal reflux (GERD) History of sinus problem Hx of skin cancer, basal cell Surgical History History of colonoscopy History of incision and drainage Family History Other Family history of cancer Social History (Updated 10/30/23 @ 12:12 by Vanessa Olmstead RN) Smoking Status: Current every day smoker tobacco type: e-cigarettes second hand exposure: Yes alcohol intake: never substance use type: denies use current occupational status: employed Travel in the last 8 weeks: None household members: spouse housing: house lives independently: Yes marital status: 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, 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 caffeine: Yes special tim needs: No agree to transfusion: No do you feel safe at home: Yes victim of physical abuse: No victim of emotional abuse: No victim of sexual abuse: No would you like helpful sources: No [facility] Anesthesia Checklist Patient Identification Patient Identification: Arm Band, Family and Verbal (Name & ) Structural Data Admitted From: Home Planned Operative Procedure/s: I&D Perirectal abscess Consent for Planned Operative Procedure(s) Verified: Yes Verified Documents: Surgical Consent and History and Physical NPO Status Verified Time NPO: 21:00 Chart Verification Results Verified: CBC, BMP and ECG Additional verifications Patient : No Anesthesia Reactions: No Hx Blood Transfusions: No Blood Transfusion Reaction: No Cardiovascular Assessment Heart Sounds: S1 & S2 Pulse Rhythm: Irregular Peripheral Edema: No Airway Assessment Mallampati Score:: Class II C-Spine Mobility Assessed: Yes (FROM) TMJ Mobility Assessed: Yes Dentition: Poor Dentition (Nothing loose per pt.) Neurological Assessment Level of Consciousness: Awake, Alert, Appropriate and Follows Commands Hx Seizures: No Numbness or tingling in extremities: No Anesthesia Plan Anesthesia Risk discussed: Yes Anesthesia Plan: Verified ASA Class: II Anesthesia Type: General
[2023-10-30 12:34] LABS: Chloride 106 mmol/L (98-107)
[2023-10-30 12:35] LABS: Potassium 4.4 mmoL/L (3.5-5.1); Sodium 140 mmol/L (136-145)
[2023-10-30 12:37] LABS: Blood Urea Nitrogen 20 mg/dl (9-20); Creatinine Clearance Estimated 105 mL/min (50-200); Estimated Glomerular Filt Rate 76 ml/min (>60); GFR (African American) 92 ML/MIN (>60)
[2023-10-30 12:38] LABS: Alanine Aminotransferase 42 U/L (12-78); Albumin Level 4.2 g/dl (3.5-5.0); Albumin/Globulin Ratio 1.2 (1.1-1.8); Alkaline Phosphatase 113 U/L (38-126); Anion Gap 13.4 mEq/L (5-15); Aspartate Amino Transferase 42 U/L (17-59); Bilirubin,Total 0.5 mg/dl (0.2-1.3); Calcium 8.9 mg/dl (8.4-10.2); Carbon Dioxide 25 mmol/L (22.0-30.0); Globulin 3.4 g/dL (1.3-3.2); Glucose 89 mg/dl (74-100); Total Protein,Serum 7.6 g/dl (6.3-8.2)
[2023-10-30] MEDS: AMPICILLIN SODIUM/SULBACTAM 3 GM in 0.9 % SODIUM CHLORIDE 100 ML IV (12:50)
--- NOTE | 2023-10-30 13:32 | P.OP_ITS ---
Date of procedure: 10/30/23 Pre-op Diagnosis:: Perianal abscess Post-op Diagnosis:: Perirectal abscess Procedure performed:: Incision and drainage of left posterior perirectal abscess Surgeon:: Tam Wall MD Anesthesia: LMA Estimated blood loss (mL): 5 Clinical Note:: Patient presents for incision and drainage perianal abscess. He had undergone transanal incision and drainage of left perianal abscess on 10/19/2023. He remained an inpatient for couple of days. He was seen in the office last week in follow-up on 10/25/23. He was having some ongoing tenderness with only slight improvement. He had been on Augmentin. I had him return to the office for early follow-up in anticipation of possible repeat operative intervention given his ongoing symptoms. His cultures have returned as Streptococcus anginosus, light growth and E. coli, scant growth. He had persistent erythema and induration in the left posterior medial gluteal area with tenderness. Plan was made to proceed with follow-up and exam under anesthesia with incision and drainage for ongoing perianal/perirectal abscess. Operative findings:: Left posterior low-lying perirectal abscess Operative note:: Consent was obtained patient was taken the operating room. He was given preoperative intravenous antibiotics. He was positioned in supine position. General anesthesia was induced via LMA. He was positioned in lithotomy position. Area was prepped and draped in the standard surgical fashion. [place] anoscope was inserted. Pus exuded from the previous intra anal incision and drainage site. Cultures were sent. The internal wound actually had shown some significant healing. In the left posterior area of induration an 18-gauge needle was inserted and aspiration performed without significant evacuation of pus. This was done as close to the anal opening as possible. Upon removal of the needle there was some bloody pus which exuded from the puncture site. Limited incision was made at this site using 11 blade. There was a significant amount of pus which exuded from the wound. This was extended as approximately 1 cm cruciate type incision. Wound was then probed with a Joyce clamp to break up any loculations and open the abscess cavity in this entirety. There was no direct widely patent communication to the internal opening however obviously there was likely minuscule communication. Wound and rectum were thoroughly irrigated and aspirated until clear. Abscess cavity was then injected with local anesthetic into the surrounding tissues 1/4 inch [place] drain was inserted into the abscess cavity and sutured with a couple of 2-0 nylon sutures. Clean dry sterile dressing was applied. Please note that although there was no widely patent communication with the internal incision and drainage site patient would be at significant risk for extra-sphincteric or trans-sphincteric fistula formation. Condition: stable Disposition: PACU Complications:: None immediately apparent
--- NOTE | 2023-10-30 13:40 | P.PNANES_ITS ---
[facility] Anesthesia Record Part I Anesthesia Record I Intake, IV Amount: 500 Hydration: Adequate Estimated blood loss (mL): 50 Urine output (mL): 0 Blood Products used (#): none Blood Pressure: 128/74 SaO2: 94 Pulse Rate: 72 Airway Patency: Patent Respiratory Rate: 18 Temperature: 97.2 F Patient is:: Drowsy and Stable Stable to PACU at:: 13:41
--- NOTE | 2023-10-31 09:40 | EXP.ANES.II ---
[facility] Anesthesia Record Part II Anesthesia Record Part II Discharge Time: 14:06 Destination: Surgical Day Care (OP Surgery) PACU nurse assessment reviewed?: Yes Patient Condition:: Good Anesthesia Complications:: None Swallowing reflex intact?: Yes Airway Patency: Patent Cyanosis?: No Blood Pressure: 131/79 SaO2: 96 Respiratory Rate: 19 Pulse Rate: 76 Temperature: 97.2 F Mental Status: Alert & Oriented Pain level:: 0 Nausea and/or vomitting:: None Intake, IV Amount: 0 Hydration: Adequate
[2023-10-31 09:41] VITALS: BP 131/79; PULSE 76; RESP 19; TEMP 36.2; O2SAT 96
== END 2023-10-30 14:40 | disposition home or self-care (01) ==
PROVIDERS: PCP Internal Medicine; Visit Provider Surgery
PROC: (CPT 46040; principal; 2023-10-30 12:00)
DX: K61.1 Rectal abscess (principal)
CPT/HCPCS: 46040; 80053; 85025; 87075; 87205

== ENCOUNTER 2023-12-13 08:58 | Outpatient (CLI) | payer BC, SELFPAY ==
--- NOTE | 2023-12-13 08:58 | CT_ITS ---
FINAL REPORT TECHNIQUE: Postcontrast axial images through the pelvis were performed. This study was performed with techniques to keep radiation doses as low as reasonably achievable, (ALARA). Individualized dose reduction techniques using automated exposure control or adjustment of mA and/or kV according to the patient's size were employed. CLINICAL HISTORY: perianal abscess COMPARISON: Prior CT abdomen and pelvis dated 10/18/2023 FINDINGS: CT PELVIS WITH CONTRAST: CT examination of the pelvis with contrast is compared to the prior CT of October 18. No intrapelvic inflammatory change or fluid collections are seen. The small abscess in the perianal region seen on prior CT is no longer visualized. There is minimal stranding in the perianal soft tissues. No new pelvic mass or adenopathy is identified. IMPRESSION: There has been resolution of the perianal abscess noted on the prior CT of October 18, with minimal residual stranding in the perianal soft tissues. No new pelvic mass or adenopathy is identified. Reviewed, Interpreted and Dictated by Shantanu Rubalcava MD Transcribed by Latosha Napier Authenticated and [facility]
[2023-12-13 09:19] LABS: Basophils # 0.1 K/mm3 (0-0.2); Basophils % 0.8 % (0.1-2.0); Eosinophils # 0.2 K/mm3 (0.0-0.4); Eosinophils % 3.6 % (0.1-12.0); Hematocrit 51.4 % (42.0-52.0); Hemoglobin 16.8 g/dL (14.1-18.0); Lymphocytes # 2.1 K/mm3 (0.7-4.5); Lymphocytes % 36.4 % (10-50); Mean Corpuscular HGB Conc 32.6 g/dL (31.8-35.4); Mean Corpuscular Hemoglobin 30.4 pg (27.0-31.2); Mean Corpuscular Volume 93.1 fl (80-94); Mean Platelet Volume 7.9 fl (7.4-10.4); Monocytes # 0.6 K/mm3 (0.1-1.0); Monocytes % 11.4 % (1.7-9.3); Neutrophils # 2.7 K/mm3 (1.8-7.8); Neutrophils % 47.8 % (37.0-80.0); Platelet Count 245 K/mm3 (142-424); Red Blood Count 5.52 M/mm3 (4.60-6.20); Red Cell Distribution Width 13.9 % (11.5-17.5); White Blood Count 5.6 K/mm3 (4.8-10.8)
[2023-12-13 09:29] LABS: Anion Gap 8.4 mEq/L (5-15); Blood Urea Nitrogen 16 mg/dl (9-20); Calcium 9.3 mg/dl (8.4-10.2); Carbon Dioxide 30 mmol/L (22.0-30.0); Chloride 107 mmol/L (98-107); Estimated Glomerular Filt Rate 76 ml/min (>60); GFR (African American) 92 ML/MIN (>60); Glucose 96 mg/dl (74-100); Potassium 4.4 mmoL/L (3.5-5.1); Sodium 141 mmol/L (136-145)
[2023-12-13] MEDS: IOPAMIDOL-370 (76%);100ML BOTTLE 75 ML IV (10:02)
[2023-12-13] MEDS: SODIUM CHLORIDE 0.9% 10ML SYR (RAD ONLY) 10 ML IV (10:02)
== END 2023-12-13 23:59 ==
LOC: RAD 08:58
PROVIDERS: PCP Internal Medicine; Visit Provider Surgery
DX: K61.0 Anal abscess (principal)
CPT/HCPCS: 36415; 72193; 80048; 85025; Q9967